=== PATIENT | male | born 2000 | race Caucasian/White ===

== ENCOUNTER 2023-02-04 18:00 | Emergency (ER) | payer OTHER, SELFPAY ==
[2023-02-04] VITALS (17 sets, daily range): BP systolic 103–123; BP diastolic 38–79; PULSE 48–62; RESP 16–20; TEMP 36.8; O2SAT 96–100
--- NOTE | 2023-02-04 18:07 | ECG_ITS ---
The [facility] Test Date: 2023-02-04 Pat Name: GUTIERREZ ESTES Department: Room: - Gender: Male [employer]ess: : 2000 Requested By: DIMITRI CARUSO Order Number: [id number] Reading MD: EDILIA JIMENEZ Measurements Intervals [place] Rate: 58 P: 65 MN: 124 QRS: 93 QRSD: 106 T: 39 QT: 430 QTc: 426 Interpretive Statements 1100 Sinus bradycardia 1570 with occasional ventricular premature complexes 7102 Moderate right axis deviation 9140 abnormal rhythm ECG No previous ECG available for comparison Electronically Signed On 02-05-2023 7:05:41 EDT by EDILIA JIMENEZ
--- NOTE | 2023-02-04 18:07 | XR_ITS ---
The [place] [id number] Patient Name: GUTIERREZ ESTES MRN: [id number] date: 2000 Sex: M Assigned Patient Location: ER Current Patient Location: ER Accession/Order Number: [id number] Exam Date: 02/04/2023 18:45 Report Date: 02/04/2023 20:02 At the request of: EMY DIAZ Procedure: XR abdomen 1V EXAM: XR abdomen 1V HISTORY: poss constipation COMPARISON: None. TECHNIQUE: Single supine view of the abdomen FINDINGS: Nonspecific bowel gas pattern is seen. No air-filled distended loops of bowel is seen to suggest bowel obstruction. Large volume of stool is seen in the colon. No obvious pathologic calcification is seen. The visualized osseous structures appear unremarkable. XR/XR abdomen 1V IMPRESSION: Large volume of stool seen in the colon. Electronically authenticated by: QUANG MARQUES Date: 02/04/2023 20:02
--- NOTE | 2023-02-04 18:09 | ED.GENADUL1 ---
HPI - General Adult General Chief complaint: Anxiety Stated complaint: ANXIETY/SITUATIONAL CRISIS Time Seen by Provider: 02/04/23 18:06 Source: patient Mode of arrival: ambulance Limitations: no limitations History of Present Illness HPI narrative: 22-year-old male presents to the emergency department because he's had thoughts of harming himself. He states he hasn't done anything to harm himself today but he started about it. He has a history of depression and PTSD. he takes antidepressants. He's also had abdominal pain on the left side for about a week and he states he hasn't been having good bowel movements. No fever or injury. He was transported here by paramedics. He is a poor historian, reluctant. Related Data Allergies Allergy/AdvReac Type Severity Reaction Status Date / Time No Known Drug Allergies Allergy Verified 02/04/23 18:09 Review of Systems ROS Narrative A ten point review of systems is negative except as noted above. PFSH PFSH Social History Smoking status: Former smoker Exam Narrative Exam Narrative: Nurses note and vital signs reviewed and patient is not hypoxic. General: The patient appears in no apparent distress. Patient is resting comfortably on cart. he is soft-spoken and answers questions very slowly. Skin: Warm, dry, no pallor noted. There is no rash noted. Head: Normocephalic, atraumatic Eye: Normal conjunctiva, no drainage Ears, Nose, Mouth, and Throat: oral mucosa is moist. Nares patent. Cardiovascular: Regular Rate and Rhythm Respiratory: Patient is in no distress, no accessory muscle use, lungs are clear to auscultation, no wheezing, rales or rhonchi Back: non-tender GI: Normal bowel sounds, no tenderness to palpation, no masses appreciated. No rebound, guarding, or rigidity noted. Musculoskeletal: The patient has no evidence of calf tenderness, no pitting edema, symmetrical pulses noted bilaterally Neurological: A&O x4, normal speech Psychiatric: Cooperative, flat affect Constitutional Vital Signs, click to edit/add: Last Vital Signs Temp 98.3 F 02/04/23 18:02 Pulse 61 02/04/23 18:02 Resp 18 02/04/23 18:02 BP 123/79 02/04/23 18:02 Pulse Ox 98 02/04/23 18:02 O2 Del Method Room Air 02/04/23 18:02 Course Vital Signs Vital signs: Vital Signs Temperature 98.3 F 02/04/23 18:02 Pulse Rate 61 02/04/23 18:02 Respiratory Rate 18 02/04/23 18:02 Blood Pressure 123/79 02/04/23 18:02 Pulse Oximetry 98 02/04/23 18:02 Oxygen Delivery Method Room Air 02/04/23 18:02 Temperature 98.3 F 02/04/23 18:02 Pulse Rate 61 02/04/23 18:02 Respiratory Rate 18 02/04/23 18:02 Blood Pressure 123/79 02/04/23 18:02 Pulse Oximetry 98 02/04/23 18:02 Oxygen Delivery Method Room Air 02/04/23 18:02 Medical Decision Making MDM Narrative Medical decision making narrative: tests are ordered and the patient is signed out to Dr. Cheng Differential Diagnosis Differential Diagnosis: depression, suicidal ideation, substance abuse, nonspecific abdominal pain, ECG Data Attestation: I personally reviewed and interpreted this ECG as follows: (EKG on my interpretation shows normal sinus rhythm with a rate of 58 and no acute changes) Discharge Plan Discharge Chief Complaint: Anxiety Patient Disposition: Still a Patient
--- NOTE | 2023-02-04 18:31 | PC.NURSE ---
Pt very anxious, legs moving around on cart and pt has arms wrapped around himself. Pt hypervent and then will hold his breath. When asked what is wrong pt states he just wants his mind to be be quiet Pt then begins to sob, turns on his lt side into a half position. pt talking under his breath.
[2023-02-04 18:32] LABS: Basophils Percent Auto 0.1 % (0.2-2.0); Eosinophils Absolute Auto 0.1 10^3/uL (0.0-0.7); Eosinophils Percent Auto 0.6 % (0.9-7.0); Hematocrit 40.7 % (42.0-54.0); Hemoglobin 13.9 g/dL (14.0-18.0); Immature Granulocytes Abs Auto 0.06 10^3/uL (0.00-0.03); Immature Granulocytes Pct Auto 0.4 % (0.0-0.5); Lymphocytes Absolute Auto 1.4 10^3/uL (1.2-3.8); Lymphocytes Percent Auto 9.9 % (20.5-60.0); Mean Corpuscular HGB Conc 34.2 g/dL (29.9-35.2); Mean Corpuscular Hemoglobin 32.6 pg (25.9-34.0); Mean Corpuscular Volume 95.3 fL (80.0-94.0); Mean Platelet Volume 8.7 fL (9.5-13.5); Monocytes Absolute Auto 0.9 10^3/uL (0.3-0.8); Monocytes Percent Auto 6.4 % (1.7-12.0); Neutrophils Absolute Auto 11.9 10^3/uL (1.4-6.5); Neutrophils Percent Auto 82.6 % (43.0-75.0); Platelet Count 264 10^3/uL (150-450); Red Blood Count 4.27 10^6/uL (4.70-6.10); Red Cell Distribution Width 12.1 % (11.0-15.0); White Blood Count 14.5 10^3/uL (4.0-11.0)
[2023-02-04 18:34] LABS: Bilirubin Urine NEGATIVE (NEGATIVE); Blood Urine NEGATIVE (NEGATIVE); Clarity Urine CLEAR (CLEAR); Color Urine LT. YELLOW (YELLOW); Glucose Urine UA NEGATIVE (NEGATIVE); Ketones Urine TRACE mg/dL (NEGATIVE); Leukocyte Esterase Urine TRACE (NEGATIVE); Nitrite Urine NEGATIVE (NEGATIVE); Protein Urine NEGATIVE (NEG/TRACE); Urobilinogen Urine 0.2 EU/dL (0.2-1.0); pH Urine 6.5 (5.0-9.0)
[2023-02-04 18:37] LABS: Urine Microscopic Indicated YES
--- NOTE | 2023-02-04 18:40 | PC.NURSE ---
Pt's scrubs changed after pt became very diaphoretic. Pt given cool cloth to wash his face.
[2023-02-04 18:42] LABS: Amphetamine Screen Urine NEGATIVE (NEGATIVE); Barbiturates Screen Urine NEGATIVE (NEGATIVE); Benzodiazepines Screen Urine NEGATIVE (NEGATIVE); Cannabinoid Screen Urine NEGATIVE (NEGATIVE); Cocaine Screen Urine NEGATIVE (NEGATIVE); Methadone Screen Urine NEGATIVE (NEGATIVE); Methamphetamines Screen Urine NEGATIVE (NEGATIVE); Opiate Screen Urine NEGATIVE (NEGATIVE); Oxycodone Screen Urine NEGATIVE (NEGATIVE); Phencyclidine Screen Urine NEGATIVE (NEGATIVE); Tricyclic Antidepressant Urine NEGATIVE (NEGATIVE)
[2023-02-04 18:43] LABS: Buprenorphine Screen Urine NEGATIVE (NEGATIVE)
[2023-02-04 18:46] LABS: WBC Urine 0-2 #/HPF (NONE SEEN)
[2023-02-04 18:47] LABS: Bacteria Urine TRACE #/HPF (NONE SEEN); Cast Seen? NONE SEEN #/LPF (NONE SEEN); Crystals Seen? None Seen #/HPF (None Seen); Mucus Urine NONE SEEN (NONE SEEN); RBC Urine 0-2 #/HPF (0-2); Squamous Epithelial Cell Urine NONE SEEN #/LPF (NONE/RARE); Urine Culture Indicated NO
[2023-02-04 18:59] LABS: Alanine Aminotransferase 52 U/L (16-63); Albumin Globulin Ratio 1.9; Albumin Level 5.3 g/dL (3.4-5.0); Alkaline Phosphatase 55 U/L (46-116); Amylase 76 U/L (25-115); Anion Gap 12.2; Aspartate Amino Transferase 35 U/L (15-37); BUN Creatinine Ratio 15.7; Bilirubin Direct 0.2 mg/dL (0.0-0.2); Bilirubin Total 0.8 mg/dL (0.2-1.0); Calcium 9.3 mg/dL (8.5-10.1); Carbon Dioxide 26.4 mmol/L (21.0-32.0); Chloride 101 mmol/L (98-107); Estimated GFR (African America >60 (>=60); Estimated GFR (Non-African Ame >60 (>=60); Ethanol <3 mg/dL; Globulin 2.8 g/dL; Glucose 79 mg/dL (74-106); Potassium 3.6 mmol/L (3.5-5.1); Salicylate <2.8 mg/dL (<=19.9); Sodium 136 mmol/L (136-145); Total Protein 8.1 g/dL (6.4-8.2)
[2023-02-04 19:00] LABS: Acetaminophen <2.0 ug/mL (10.0-30.0)
--- NOTE | 2023-02-04 19:56 | CT_ITS ---
The [address] [place] [id number] Patient Name: GUTIERREZ ESTES MRN: [id number] date: 2000 Sex: M Assigned Patient Location: ER Current Patient Location: ER Accession/Order Number: [id number] Exam Date: 02/04/2023 20:08 Report Date: 02/04/2023 21:50 At the request of: MITUL MARKER Procedure: CT abdomen pelvis w con EXAM: CT abdomen pelvis w con HISTORY: Abdominal pain, black stool COMPARISON: None. TECHNIQUE: CT of the abdomen and pelvis with intravenous contrast. Dose reduction techniques were achieved by using automated exposure control and/or adjustment of mA and/or kV according to patient size and/or use of iterative reconstruction technique. FINDINGS: TUBES AND IMPLANTS: None. LOWER CHEST: Unremarkable ABDOMEN and PELVIS ABDOMINAL WALL AND SOFT TISSUES: Unremarkable. BONES: No suspicious lesions. Multilevel degenerative changes of the spine. ARTERIES: Unremarkable. VEINS: Unremarkable. LYMPH NODES: Unremarkable. PERITONEUM/ RETROPERITONEUM: Unremarkable. BOWEL: No obstruction. Mild mucosal hyperenhancement and fecalization of contents seen within the terminal ileum. APPENDIX: Unremarkable LIVER: Unremarkable. GALLBLADDER: Unremarkable. BILE DUCTS: Not dilated SPLEEN: Unremarkable. PANCREAS: Unremarkable. ADRENALS: Unremarkable. KIDNEYS/ URETERS: Unremarkable. REPRODUCTIVE ORGANS: Unremarkable URINARY BLADDER: Unremarkable. Delayed imaging shows contrast within the bladder. CT/CT abdomen pelvis w con IMPRESSION: Mild mucosal hyperenhancement and fecalization of contents seen within the terminal ileum which may represent terminal ileitis. Electronically authenticated by: BOYD MEDINA Date: 02/04/2023 21:50
--- NOTE | 2023-02-04 19:57 | ED.GENADUL1 ---
HPI - General Adult General Chief complaint: Anxiety Stated complaint: ANXIETY/SITUATIONAL CRISIS Time Seen by Provider: 02/04/23 18:06 Source: patient Mode of arrival: ambulance Limitations: no limitations History of Present Illness HPI narrative: 22-year-old patient was signed out to me at shift change pending reevaluation and psychiatric consultation. Seen and examined in room 6. He states that he has been having suicidal thoughts today. He states that I have a lot of thoughts in my head that I wished weren't there He does not relate any specific plan. He does state that 2 weeks ago he had a relationship that ended. He has been having a hard time dealing with the end of this relationship that lasted approximately one year. He also admitted to the nurse who is sitting with him that he has a history of moderate alcohol use. He admits to last drinking on Wednesday. He has been having some left lower quadrant abdominal pain and black tarry stool according to him. His abdominal exam is benign. I reviewed the x-ray of his abdomen which does not show any acute findings however he does have an elevated white count and we will proceed with a CT of the abdomen and pelvis with contrast to rule out any intra-abdominal pathology. At the time of this dictation he is otherwise medically cleared and speaking to [facility]. CT scan abdomen and pelvis was ordered due to the abdominal pain, the results are included in the body of this report and shows some fecalization of Contents in the terminal ileum Which can be consistent with terminal ileitis. He was medicated with a dose of Flagyl. He requests something to eat. He was given something to eat. Recommendation for hospitalization was made by [facility] and the patient signed voluntarily. He is accepted for transfer to [place] [address] Carver Related Data Allergies Allergy/AdvReac Type Severity Reaction Status Date / Time No Known Drug Allergies Allergy Verified 02/04/23 18:09 [facility] Social History Smoking status: Former smoker Exam Constitutional Vital Signs, click to edit/add: Last Vital Signs Temp 98.3 F 02/04/23 18:02 Pulse 55 L 02/04/23 22:00 Resp 16 02/04/23 22:00 BP 106/44 L 02/04/23 22:00 Pulse Ox 98 02/04/23 22:00 O2 Del Method Room Air 02/04/23 22:00 Course Vital Signs Vital signs: Vital Signs Temperature 98.3 F 02/04/23 18:02 Pulse Rate 61 02/04/23 18:02 Respiratory Rate 18 02/04/23 18:02 Blood Pressure 123/79 02/04/23 18:02 Pulse Oximetry 98 02/04/23 18:02 Oxygen Delivery Method Room Air 02/04/23 18:02 Temperature 98.3 F 02/04/23 18:02 Pulse Rate 55 L 02/04/23 22:00 Respiratory Rate 16 02/04/23 22:00 Blood Pressure 106/44 L 02/04/23 22:00 Pulse Oximetry 98 02/04/23 22:00 Oxygen Delivery Method Room Air 02/04/23 22:00 Medical Decision Making MDM Narrative Medical decision making narrative: [place] [address] CT Scan Report Signed Patient: GUTIERREZ ESTES MR#: [id number] : 2000 Acct:[id number] Age/Sex: 22 / M ADM Date: 02/04/23 Loc: ER Attending Dr: Ordering Physician: Kendra Cheng Date of Service: 02/04/23 Procedure(s): CT abdomen pelvis w con Accession Number(s): [id number] cc: Tessa Khalil M.D.~ ? [facility] ?? ? [address] [place] [address] ?? ? [place] [address] ? Patient Name: GUTIERREZ ESTES ? MRN: [id number]? ? date: 2000? ? Sex: M Assigned Patient Location: ER Current Patient Location: ER Accession/Order Number: [id number] Exam Date: 02/04/2023? 20:08? ? Report Date: 02/04/2023? 21:50 ? At the request of: KENDRA? ESTEFANIA? ? Procedure:? CT abdomen pelvis w con ? EXAM: CT abdomen pelvis w con ? HISTORY: Abdominal pain, black stool ? COMPARISON: None. ? TECHNIQUE: CT of the abdomen and pelvis with intravenous contrast. Dose reduction techniques were achieved by using automated exposure control and/or adjustment of mA and/or kV according to patient size and/or use of iterative reconstruction technique. ? FINDINGS: TUBES AND IMPLANTS: None. ? LOWER CHEST: ? Unremarkable ? ABDOMEN and PELVIS ? ABDOMINAL WALL AND SOFT TISSUES: Unremarkable. ? BONES: No suspicious lesions. Multilevel degenerative changes of the spine. ? ARTERIES: Unremarkable. VEINS: Unremarkable. LYMPH NODES: Unremarkable. PERITONEUM/ RETROPERITONEUM: Unremarkable. BOWEL: No obstruction. Mild mucosal hyperenhancement and fecalization of contents seen within the terminal ileum. APPENDIX: Unremarkable ? LIVER: Unremarkable. GALLBLADDER: Unremarkable. BILE DUCTS: Not dilated SPLEEN: Unremarkable. PANCREAS: Unremarkable. ADRENALS: Unremarkable. KIDNEYS/ URETERS: Unremarkable. REPRODUCTIVE ORGANS: Unremarkable URINARY BLADDER: Unremarkable. Delayed imaging shows contrast within the bladder. ? CT/CT abdomen pelvis w con IMPRESSION: Mild mucosal hyperenhancement and fecalization of contents seen within the terminal ileum which may represent terminal ileitis. Lab Data Lab results narrative: [place] [address] CT Scan Report Signed Patient: GUTIERREZ ESTES MR#: [id number] : 2000 Acct:[id number] Age/Sex: 22 / M ADM Date: 02/04/23 Loc: ER Attending Dr: Ordering Physician: Kendra Cheng Date of Service: 02/04/23 Procedure(s): CT abdomen pelvis w con Accession Number(s): [id number] cc: Tessa Khalil M.D.~ ? [facility] ?? ? [address] [place] [address] ?? ? [place] [address] ? Patient Name: GUTIERREZ ESTES ? MRN: [id number]? ? date: 2000? ? Sex: M Assigned Patient Location: ER Current Patient Location: ER Accession/Order Number: [id number] Exam Date: 02/04/2023? 20:08? ? Report Date: 02/04/2023? 21:50 ? At the request of: KENDRA? MARKER? ? Procedure:? CT abdomen pelvis w con ? EXAM: CT abdomen pelvis w con ? HISTORY: Abdominal pain, black stool ? COMPARISON: None. ? TECHNIQUE: CT of the abdomen and pelvis with intravenous contrast. Dose reduction techniques were achieved by using automated exposure control and/or adjustment of mA and/or kV according to patient size and/or use of iterative reconstruction technique. ? FINDINGS: TUBES AND IMPLANTS: None. ? LOWER CHEST: ? Unremarkable ? ABDOMEN and PELVIS ? ABDOMINAL WALL AND SOFT TISSUES: Unremarkable. ? BONES: No suspicious lesions. Multilevel degenerative changes of the spine. ? ARTERIES: Unremarkable. VEINS: Unremarkable. LYMPH NODES: Unremarkable. PERITONEUM/ RETROPERITONEUM: Unremarkable. BOWEL: No obstruction. Mild mucosal hyperenhancement and fecalization of contents seen within the terminal ileum. APPENDIX: Unremarkable ? LIVER: Unremarkable. GALLBLADDER: Unremarkable. BILE DUCTS: Not dilated SPLEEN: Unremarkable. PANCREAS: Unremarkable. ADRENALS: Unremarkable. KIDNEYS/ URETERS: Unremarkable. REPRODUCTIVE ORGANS: Unremarkable URINARY BLADDER: Unremarkable. Delayed imaging shows contrast within the bladder. ? CT/CT abdomen pelvis w con IMPRESSION: Mild mucosal hyperenhancement and fecalization of contents seen within the terminal ileum which may represent terminal ileitis. ? ? Electronically authenticated by: WILLAM MEDINA ? Date: 02/04/2023? 21:50 Labs: Lab Results 02/04/23 Range/Units 18:19 WBC 14.5 H (4.0-11.0) 10^3/uL RBC 4.27 L (4.70-6.10) 10^6/uL Hgb 13.9 L (14.0-18.0) g/dL Hct 40.7 L (42.0-54.0) % MCV 95.3 H (80.0-94.0) fL MCH 32.6 (25.9-34.0) pg MCHC 34.2 (29.9-35.2) g/dL RDW 12.1 (11.0-15.0) % Plt Count 264 (150-450) 10^3/uL MPV 8.7 L (9.5-13.5) fL Neut % (Auto) 82.6 H (43.0-75.0) % Lymph % (Auto) 9.9 L (20.5-60.0) % [place] % (Auto) 6.4 (1.7-12.0) % Eos % (Auto) 0.6 L (0.9-7.0) % Baso % (Auto) 0.1 L (0.2-2.0) % Neut # (Auto) 11.9 H (1.4-6.5) 10^3/uL Lymph # (Auto) 1.4 (1.2-3.8) 10^3/uL [place] # (Auto) 0.9 H (0.3-0.8) 10^3/uL Eos # (Auto) 0.1 (0.0-0.7) 10^3/uL Baso # (Auto) 0.0 (0.0-0.1) 10^3/uL Abs Immat Gran (auto) 0.06 H (0.00-0.03) 10^3/uL Imm/Tot Granulo (auto) 0.4 (0.0-0.5) % Sodium 136 (136-145) mmol/L Potassium 3.6 (3.5-5.1) mmol/L Chloride 101 (98-107) mmol/L Carbon Dioxide 26.4 (21.0-32.0) mmol/L Anion Gap 12.2 BUN 16.0 (7.0-18.0) mg/dL Creatinine 1.02 (0.70-1.30) mg/dL Est GFR ( Amer) >60 (>=60) Est GFR (Non-Af Amer) >60 (>=60) BUN/Creatinine Ratio 15.7 Glucose 79 (74-106) mg/dL Calcium 9.3 (8.5-10.1) mg/dL Total Bilirubin 0.8 (0.2-1.0) mg/dL Direct Bilirubin 0.2 (0.0-0.2) mg/dL AST 35 (15-37) U/L ALT 52 (16-63) U/L Alkaline Phosphatase 55 (46-116) U/L Total Protein 8.1 (6.4-8.2) g/dL Albumin 5.3 H (3.4-5.0) g/dL Globulin 2.8 g/dL Albumin/Globulin Ratio 1.9 Amylase 76 (25-115) U/L Lipase 47.0 L (73.0-393.0) U/L TSH 3.380 (0.358-3.740) uIU/mL Urine Color Lt. yellow (YELLOW) Urine Clarity Clear (CLEAR) Urine pH 6.5 (5.0-9.0) Ur Specific [place] 1.010 (1.005-1.025) Urine Protein Negative (NEG/TRACE) mg/dL Urine Glucose (UA) Negative (NEGATIVE) mg/dL Urine Ketones Trace A (NEGATIVE) mg/dL Urine Occult Blood Negative (NEGATIVE) Urine Nitrite Negative (NEGATIVE) Urine Bilirubin Negative (NEGATIVE) Urine Urobilinogen 0.2 (0.2-1.0) EU/dL Ur Leukocyte Esterase Trace A (NEGATIVE) Urine RBC 0-2 (0-2) #/HPF Urine WBC 0-2 A (NONE SEEN) #/HPF Ur Squamous Epith Cells None seen (NONE/RARE) #/LPF Urine Crystals None seen (None Seen) #/HPF Urine Bacteria Trace A (NONE SEEN) #/HPF Urine Casts None seen (NONE SEEN) #/LPF Urine Mucus None seen (NONE SEEN) Ur Culture Indicated? No Salicylates <2.8 (<=19.9) mg/dL Urine Opiates Screen Negative (NEGATIVE) Ur Buprenorphine Scrn Negative (NEGATIVE) Ur Oxycodone Screen Negative (NEGATIVE) Urine Methadone Screen Negative (NEGATIVE) Ur Propoxyphene Screen Negative (NEGATIVE) Acetaminophen <2.0 L (10.0-30.0) ug/mL Ur Barbiturates Screen Negative (NEGATIVE) U Tricyclic Antidepress Negative (NEGATIVE) Ur Phencyclidine Scrn Negative (NEGATIVE) Ur Amphetamines Screen Negative (NEGATIVE) U Methamphetamines Scrn Negative (NEGATIVE) U Benzodiazepines Scrn Negative (NEGATIVE) Urine Cocaine Screen Negative (NEGATIVE) U Cannabinoids Screen Negative (NEGATIVE) Ethanol Quant <3 mg/dL Discharge Plan Discharge Chief Complaint: Anxiety Clinical Impression: Acute post-traumatic stress disorder, Terminal ileitis, Depression, Acute anxiety Patient Disposition: [facility] Time of Disposition Decision: 22:50 Discharge Location: [facility] Condition: Good
[2023-02-04] MEDS: 0.9 % SODIUM CHLORIDE 1,000 ML 1000 ML IV (20:24)
[2023-02-04] MEDS: PANTOPRAZOLE SODIUM 40 MG VIAL IV (20:25)
[2023-02-04] MEDS: METRONIDAZOLE 250 MG TABLET 500 MG PO (22:44)
--- NOTE | 2023-02-04 23:13 | PC.NURSE ---
Report to [address] [phone]
[2023-02-05] VITALS (9 sets, daily range): BP systolic 103; BP diastolic 38; PULSE 53–56; RESP 14–16; O2SAT 97–99
--- NOTE | 2023-02-05 01:01 | PC.NURSE ---
Transport here to take patient to [address] [place] [address].
== END 2023-02-05 01:10 ==
PROVIDERS: Emergency Medicine; Emergency Provider Emergency Medicine; PCP Family Medicine
DX: F43.11 Post-traumatic stress disorder, acute (principal); K50.00 Crohn's disease of small intestine without complications; F32.A Depression, unspecified; F41.9 Anxiety disorder, unspecified; Z87.891 Personal history of nicotine dependence; R45.851 Suicidal ideations
CPT/HCPCS: 36415; 74018; 74177; 80048; 80076; 80179; 80307; 80320; 80329; 81001; 81003; 82150; 83690; 84443; 85025; 93005; 96374; 99285; Q9967

== ENCOUNTER 2024-01-04 18:23 | Emergency (ER) | payer OTHER, SELFPAY ==
[2024-01-04] VITALS (10 sets, daily range): BP systolic 120–125; BP diastolic 69–80; PULSE 40–79; TEMP 37.2; O2SAT 99; BMI 23.5
--- NOTE | 2024-01-04 18:39 | ED.GENADUL1 ---
HPI HPI - General Adult General Chief complaint: Headache Stated complaint: Headache Time Seen by Provider: 01/04/24 18:32 Source: patient Mode of arrival: walk-in History of Present Illness HPI narrative: Patient is a 23-year-old male who presents to the emergency department for the evaluation of multiple complaints. He states for the last 2 days he has had global headache associated with pressure in his ears, dizziness where he feels lightheaded and as though the room is spinning. He has had no objective fevers. He reports decreased oral intake and nausea but no vomiting or diarrhea. He denies urinary symptoms. He states he came to the emergency department today for chest pain, although he did not discuss this with nursing staff at time of arrival to the ER or triage. He states the chest pain has been present for several hours in the mid and right chest. He denies coughing, hemoptysis, peripheral edema. He states he has also been feeling tired and fatigued and is worried he is dehydrated. Patient is on multiple psychiatric medications. He took ibuprofen earlier today for the headache with improvement but has not taken any additional medicines. Related Data Previous Rx's ?Medication ?Instructions ?Recorded ketorolac 10 mg tablet 10 mg PO TID PRN pain #10 tabs 01/04/24 ondansetron 4 mg disintegrating 4 mg PO Q6H PRN nausea and 01/04/24 tablet vomiting #12 tabs Allergies Allergy/AdvReac Type Severity Reaction Status Date / Time No Known Drug Allergies Allergy Verified 03/22/23 08:28 Opioid HPI Opioid Management Most Recent Opioid Data: Ur Phencyclidine Scrn Negative (NEGATIVE) 02/04/23 18:19 Review of Systems ROS Constitutional Reports: fatigue and malaise; Denies: fever or chills Ears, nose, mouth, and throat Reports: ear pain; Denies: throat pain or nasal congestion Cardiovascular Reports: chest pain Respiratory Denies: shortness of breath or cough Gastrointestinal Reports: nausea; Denies: abdominal pain, vomiting or diarrhea Musculoskeletal Denies: back pain or neck pain Integumentary/Breast Denies: rash Neurological Reports: headache and dizziness; Denies: numbness in extremities or weakness in extremities Hematologic/Lymphatic Denies: easy bruising or easy bleeding PFSH PFSH Social History Smoking status: Former smoker Exam Narrative Exam Narrative: Gen.: Awake, alert, in no distress Head: Normocephalic, atraumatic ENT: Moist mucous membranes, Right TM is minimally erythematous and bulging. Left TM is clear and bulging; No nuchal rigidity or meningismus Respiratory: No respiratory distress, lungs clear bilaterally Cardio: Regular rate and rhythm Extremities: Moves extremities equally Psych: Normal mood and affect Neuro: No focal neuro deficit Skin: Warm, dry, intact Constitutional Vital Signs, click to edit/add: Last Vital Signs Temp 99 F 01/04/24 18:27 Pulse 61 01/04/24 20:10 Resp 12 01/04/24 20:10 BP 120/80 01/04/24 18:27 Pulse Ox 99 01/04/24 18:27 O2 Del Method Room Air 01/04/24 18:27 Course Vital Signs Vital signs: Vital Signs Temperature 99 F 01/04/24 18:27 Pulse Rate 72 01/04/24 18:27 Respiratory Rate 18 01/04/24 18:27 Blood Pressure 120/80 01/04/24 18:27 Pulse Oximetry 99 01/04/24 18:27 Oxygen Delivery Method Room Air 01/04/24 18:27 Temperature 99 F 01/04/24 18:27 Pulse Rate 61 01/04/24 20:10 Respiratory Rate 12 01/04/24 20:10 Blood Pressure 120/80 01/04/24 18:27 Pulse Oximetry 99 01/04/24 18:27 Oxygen Delivery Method Room Air 01/04/24 18:27 Medical Decision Making [facility] Narrative Medical decision making narrative: Patient medicated with IV fluids, Toradol, Reglan, Benadryl. He is resting comfortably with improvement on reevaluation. EKG is unremarkable, lab studies are within normal limits and COVID test is negative. CT of the brain and chest x-ray show no evidence of acute Abnormalities. Vital signs are within normal limits. Patient with no respiratory distress in the ER. Toradol and Zofran given for home. Follow-up PCP and return to the emergency department if symptoms change or worsen. SUPERVISED APC VISIT, PHYSICIAN ATTESTATION: Based on the medical record the care appears appropriate. ? Medical Records Medical records reviewed: Yes I reviewed the patient's medical records Lab Data Lab results reviewed: Yes I reviewed the patient's lab results Labs: Lab Results 01/04/24 01/04/24 Range/Units 18:55 19:00 WBC 8.3 (4.0-11.0) 10^3/uL RBC 5.00 (4.70-6.10) 10^6/uL Hgb 15.9 (14.0-18.0) g/dL Hct 47.9 (42.0-54.0) % MCV 95.8 H (80.0-94.0) fL MCH 31.8 (25.9-34.0) pg MCHC 33.2 (29.9-35.2) g/dL RDW 12.1 (11.0-15.0) % Plt Count 273 (150-450) 10^3/uL MPV 9.0 L (9.5-13.5) fL Neut % (Auto) 62.1 (43.0-75.0) % Lymph % (Auto) 25.8 (20.5-60.0) % [place] % (Auto) 8.7 (1.7-12.0) % Eos % (Auto) 2.8 (0.9-7.0) % Baso % (Auto) 0.4 (0.2-2.0) % Neut # (Auto) 5.2 (1.4-6.5) 10^3/uL Lymph # (Auto) 2.1 (1.2-3.8) 10^3/uL [place] # (Auto) 0.7 (0.3-0.8) 10^3/uL Eos # (Auto) 0.2 (0.0-0.7) 10^3/uL Baso # (Auto) 0.0 (0.0-0.1) 10^3/uL Abs Immat Gran (auto) 0.02 (0.00-0.03) 10^3/uL Imm/Tot Granulo (auto) 0.2 (0.0-0.5) % PT 10.6 (9.0-11.6) sec INR 1.00 Sodium 138 (136-145) mmol/L Potassium 3.7 (3.5-5.1) mmol/L Chloride 99 (98-107) mmol/L Carbon Dioxide 30.0 (21.0-32.0) mmol/L Anion Gap 12.7 BUN 21.0 H (7.0-18.0) mg/dL Creatinine 0.98 (0.70-1.30) mg/dL Est GFR ( Amer) >60 (>=60) Est GFR (Non-Af Amer) >60 (>=60) BUN/Creatinine Ratio 21.4 Glucose 86 (74-106) mg/dL Lactate 1.4 (0.4-2.0) mmol/L Calcium 9.5 (8.5-10.1) mg/dL Total Bilirubin 0.6 (0.2-1.0) mg/dL AST 36 (15-37) U/L ALT 74 H (16-63) U/L Alkaline Phosphatase 68 (46-116) U/L Troponin I High Sens 4.3 (4.0-76.1) pg/mL Total Protein 8.1 (6.4-8.2) g/dL Albumin 4.4 (3.4-5.0) g/dL Globulin 3.7 g/dL Albumin/Globulin Ratio 1.2 SARS-CoV-2 Ag (CV2AG) Negative (NEGATIVE) Imaging Data CT scan - head: Attestation: I have reviewed the pertinent imaging results. Radiologist's impression: ITS Impressions Chest X-Ray 01/04/24 18:46 IMPRESSION: No acute findings. Electronically authenticated by: FELIX PILLAI Date: 01/04/2024 20:[address] 01/04/24 18:47 IMPRESSION: No intracranial hemorrhage or mass effect. Electronically authenticated by: QUANG MARQUES Date: 01/04/2024 21:02 ECG Data Attestation: I personally reviewed and interpreted this ECG as follows: (Normal sinus rhythm at a rate of 71,No acute ST elevation, occasional PVC . EKG reviewed by attending physician) Discharge Plan Discharge Stand Alone Forms: Portal Instructions Chief Complaint: Headache Clinical Impression: Headache, Dizziness Patient Disposition: Home, Self-Care Time of Disposition Decision: 21:14 Condition: Good Prescriptions / Home Meds: New ketorolac 10 mg tablet 10 mg PO TID PRN (Reason: pain) Qty: 10 0RF ondansetron 4 mg tablet,disintegrating 4 mg PO Q6H PRN (Reason: nausea and vomiting) Qty: 12 0RF Print Language: Urdu Instructions: Acute Headache (ED), Dizziness (ED) Referrals: Physician,Non-Staff, MD [Primary Care Provider] - 1 week
--- NOTE | 2024-01-04 18:46 | ECG_ITS ---
The [facility] Test Date: 2024-01-04 Pat Name: GUTIERREZ ESETS Department: Room: - Gender: Male Parts Analyst: : 2000 Requested By: [id number] Order Number: [id number] Reading MD: EDILIA JIMENEZ Measurements Intervals [place] Rate: 71 P: 65 NE: 134 QRS: 89 QRSD: 98 T: 58 QT: 376 QTc: 399 Interpretive Statements 1100 Sinus rhythm 1970 with occasional ectopic premature complexes 9140 abnormal rhythm ECG No previous ECG available for comparison Electronically Signed On 01-05-2024 7:00:11 EDT by EDILIA JIMENEZ
--- NOTE | 2024-01-04 18:46 | XR_ITS ---
The [address] [address] Patient Name: GUTIERREZ ESTES MRN: [id number] date: 2000 Sex: M Assigned Patient Location: ER Current Patient Location: ER Accession/Order Number: [id number] Exam Date: 01/04/2024 19:34 Report Date: 01/04/2024 20:38 At the request of: MAKEDA RASMUSSEN Procedure: XR chest 1V EXAM: XR chest 1V COMPARISON: None available. CLINICAL INDICATION: Chest pain. FINDINGS: The cardiomediastinal silhouette is within normal limits. No focal consolidation. No pleural effusion. No pneumothorax. No evidence of acute osseous abnormality. XR/XR chest 1V IMPRESSION: No acute findings. Electronically authenticated by: FELIX PILLAI Date: 01/04/2024 20:38
--- NOTE | 2024-01-04 18:47 | CT_ITS ---
The [address] [address] Patient Name: GUTIERREZ ESTES MRN: [id number] date: 2000 Sex: M Assigned Patient Location: ED.MAIN Current Patient Location: ER Accession/Order Number: [id number] Exam Date: 01/04/2024 19:38 Report Date: 01/04/2024 21:02 At the request of: MAKEDA RASMUSSEN Procedure: CT head/brain wo con EXAMINATION: CT head/brain wo con, , 01/04/2024 7:38 PM EDT INDICATION: Headache, dizziness HISTORY: Ordering Provider Reason for Exam: Headache, dizziness Technologist Note: Additional: COMPARISON: None. TECHNIQUE: CT scan of the head was performed without IV contrast. CT dose reduction technique was used, including Automated Exposure Control. FINDINGS: Ventricles and sulci are normal in size and configuration. No extra-axial collection. No intracranial hemorrhage. No mass effect or edema. No CT evidence of large territorial infarction. Visualized paranasal sinuses are well aerated. Mastoids are clear. Calvarium is unremarkable. CT/CT head/brain wo con IMPRESSION: No intracranial hemorrhage or mass effect. Electronically authenticated by: QUANG MARQUES Date: 01/04/2024 21:02
[2024-01-04] MEDS: 0.9 % SODIUM CHLORIDE 1,000 ML 999 ML IV (19:11)
[2024-01-04] MEDS: DIPHENHYDRAMINE HCL 50 MG/ML VIAL 25 MG IV (19:12)
[2024-01-04] MEDS: KETOROLAC TROMETHAMINE 30 MG/ML VIAL IVP (19:15)
[2024-01-04] MEDS: METOCLOPRAMIDE HCL 10 MG/2 ML VIAL IVP (19:17)
--- NOTE | 2024-01-04 19:23 | PC.NURSE ---
pt states improvement of symptoms with cool compress to forehead and lights to room dimmed. pt no longer diaphoretic. clammy at this time. denies nausea and states feeling a little bit better . denies current needs at this time. bedside report given to Alicia FLOYD, all questions answered.
[2024-01-04 19:32] LABS: Basophils Percent Auto 0.4 % (0.2-2.0); Eosinophils Absolute Auto 0.2 10^3/uL (0.0-0.7); Eosinophils Percent Auto 2.8 % (0.9-7.0); Hematocrit 47.9 % (42.0-54.0); Hemoglobin 15.9 g/dL (14.0-18.0); Immature Granulocytes Abs Auto 0.02 10^3/uL (0.00-0.03); Immature Granulocytes Pct Auto 0.2 % (0.0-0.5); Lymphocytes Absolute Auto 2.1 10^3/uL (1.2-3.8); Lymphocytes Percent Auto 25.8 % (20.5-60.0); Mean Corpuscular HGB Conc 33.2 g/dL (29.9-35.2); Mean Corpuscular Hemoglobin 31.8 pg (25.9-34.0); Mean Corpuscular Volume 95.8 fL (80.0-94.0); Monocytes Absolute Auto 0.7 10^3/uL (0.3-0.8); Monocytes Percent Auto 8.7 % (1.7-12.0); Neutrophils Absolute Auto 5.2 10^3/uL (1.4-6.5); Neutrophils Percent Auto 62.1 % (43.0-75.0); Platelet Count 273 10^3/uL (150-450); Red Cell Distribution Width 12.1 % (11.0-15.0); White Blood Count 8.3 10^3/uL (4.0-11.0)
[2024-01-04 19:43] LABS: Internal Control Within Normal Limits; SARS-CoV-2 Ag NEGATIVE (NEGATIVE)
[2024-01-04 19:48] LABS: Prothrombin Time 10.6 sec (9.0-11.6)
[2024-01-04 19:49] LABS: Lactate/Lactic Acid 1.4 mmol/L (0.4-2.0)
[2024-01-04 19:56] LABS: Alanine Aminotransferase 74 U/L (16-63); Albumin Globulin Ratio 1.2; Albumin Level 4.4 g/dL (3.4-5.0); Alkaline Phosphatase 68 U/L (46-116); Anion Gap 12.7; Aspartate Amino Transferase 36 U/L (15-37); BUN Creatinine Ratio 21.4; Bilirubin Total 0.6 mg/dL (0.2-1.0); Calcium 9.5 mg/dL (8.5-10.1); Chloride 99 mmol/L (98-107); Estimated GFR (African America >60 (>=60); Estimated GFR (Non-African Ame >60 (>=60); Globulin 3.7 g/dL; Glucose 86 mg/dL (74-106); Potassium 3.7 mmol/L (3.5-5.1); Sodium 138 mmol/L (136-145); Total Protein 8.1 g/dL (6.4-8.2); Troponin I High Sensitivity 4.3 pg/mL (4.0-76.1)
== END 2024-01-04 21:30 | disposition home or self-care (01) ==
PROVIDERS: Physician Assistant; Emergency Provider Emergency Medicine
DX: R51.9 Headache, unspecified (principal); R42 Dizziness and giddiness; Z87.891 Personal history of nicotine dependence; Z20.822 Contact with and (suspected) exposure to COVID-19
CPT/HCPCS: 36415; 70450; 71045; 80053; 83605; 84484; 85025; 85610; 87811; 93005; 96361; 96374; 96375; 99285; J1200; J1885; J2765

== ENCOUNTER 2024-06-30 09:06 | Outpatient (OUT) | payer OTHER, SELFPAY ==
--- NOTE | 2024-06-30 09:15 | MR_ITS ---
The [address] [address] Patient Name: GUTIERREZ ESTES MRN: [id number] date: 2000 Sex: M Assigned Patient Location: MRI Current Patient Location: MRI Accession/Order Number: [id number] Exam Date: 06/30/2024 09:45 Report Date: 06/30/2024 14:34 At the request of: NON-STAFF PHYSICIAN Procedure: MR head/brain wo con MR head/brain wo con, 06/30/2024 9:45 AM EST INDICATION: Worsening Headaches COMPARISON: There is no appropriate prior study for comparison. TECHNIQUE: Multiplanar, multisequential MRI images of brain were obtained without injection of contrast. FINDINGS: The cerebral sulci as well as ventricular system are appropriate for age. There is no restricted diffusion. There is no intracranial mass, mass effect, midline shift, intra or extra-axial fluid collection or large hemorrhage. Normal flow-void in the intracranial vessels is noted. Retention cyst within the left maxillary sinus is noted. The visualized portions of orbits, mastoid air cells as well as remainder of paranasal sinuses are unremarkable. MR/MR head/brain wo con IMPRESSION: No acute intracranial process is noted. No intracranial abnormality is noted. Left maxillary retention cyst. Electronically authenticated by: PENG EVERETT Date: 06/30/2024 14:34
--- NOTE | 2024-06-30 09:22 | XR_ITS ---
The [address] [address] Patient Name: GUTIERREZ ESTES MRN: [id number] date: 2000 Sex: M Assigned Patient Location: MRI Current Patient Location: MRI Accession/Order Number: [id number] Exam Date: 06/30/2024 09:25 Report Date: 06/30/2024 09:39 At the request of: NON-STAFF PHYSICIAN Procedure: XR foreign body eye MILLICENT EXAMINATION: XR foreign body eye MILLICENT HISTORY: Foreign Body Eye COMPARISON: No relevant comparison available. FINDINGS: ORBITS: Negative for a metallic foreign body. OTHER: Negative. XR/XR foreign body eye MILLICENT IMPRESSION: 1. No metallic foreign body within the orbits. Electronically authenticated by: CHARLENE BIRMINGHAM Date: 06/30/2024 09:39
== END 2024-06-30 09:07 | disposition home or self-care (01) ==
LOC: MRI 09:06
DX: R51.9 Headache, unspecified (principal)
CPT/HCPCS: 70030; 70551

== ENCOUNTER 2025-02-27 17:56 | Emergency (ER) | payer OTHER, SELFPAY ==
[2025-02-27 18:00] VITALS: BP 129/85; PULSE 80; TEMP 36.7; O2SAT 98; BMI 24.2
--- OUTSIDE RECORDS SUMMARY | 2025-02-27 18:07 | XMS_ITS | CCD ---
Author Organization [facility] Care Team Providers Care Arcgis Developer Name Role Phone INOCENCIO CAO Consulting Unavailable TESSA CARUSO Primary Care Unavailable INOCENCIO CAO Admitting Unavailable INOCENCIO CAO Attending Unavailable Gianluca Cintron Consulting Unavailable TESSA CARUSO Attending Unavailable TESSA CARUSO Consulting Unavailable TESSA CARUSO Primary Care Unavailable TESSA CARUSO Admitting Unavailable Maryanne Zarco Consulting Unavailable Frederick COSTELLO Attending Unavailable Tessa Caruso Unavailable MD Tessa Caruso Primary Care Provider MD Jose Alfredo Celaya Admit Provider MD Jose Alfredo Celaya Attending Provider Jamie Lazar Unavailable Pete Galicia Unavailable DO Azam Montanez Primary Care Provider PINEDA Reddy Emergency Provider [phone] Azam Montanez Primary Care Unavailable Jamie Lazar Attending Unavailable Jamie Lazar Admitting Unavailable Azam Montanez Primary Care Unavailable Cooper Reddy Attending Unavailable Cooper Reddy Admitting Unavailable NABEEL QUINTEROS Attending Unavailable Unallocated , Noms Provider Primary Care Provi axvi Allergies Allergy Classification Reported Allergen(s) Allergy Type Date of Onset Reaction(s) Facility (2 sources) patient allergy list reviewed by nurse or physicia Propensity to adverse reactions 6 Comment:Done [employer] Other (2 sources) Allergies Reconciled Propensity to adverse reactions Unknown [employer] Other Medications Current Medications Medication Drug Class(es) Dates Sig (Normalized) Sig (Original) amitriptyline hydrochloride 25 mg oral tablet (2 sources) Tricyclic Antidepressant Start: 04-20-2023 take 1-2 tablets by mouth at bedtime as needed for sleep amitriptyline (Elavil) 25 MG tablet TAKE ONE TO TWO TABLETS BY MOUTH AT BEDTIME NEEDED FOR SLEEP 04/20/2023 Active cefdinir 300 mg oral capsule (4 sources) Cephalosporin Antibacterial Start: 11-29-2024 End: 12-09-2024 take 1 capsule by mouth in the morning cefdinir (Omnicef) 300 MG capsule Indications: Acute non-recurrent frontal sinusitis Take 1 capsule (300 mg) by mouth in the morning and 1 capsule (300 mg) before bedtime. Do all this for 10 days. 20 capsule 11/29/2024 12/09/2024 Active Start: 10-15-2023 End: 04-02-2024 Cefdinir Discontinued 600 MG PO October 15, 2023 12:00am April 02, 2024 1:19pm celecoxib 200 mg oral capsule (1 source) Nonsteroidal Anti-inflammatory Drug Start: 04-02-2024 take 200 mg by mouth once daily Celecoxib Active 200 MG PO Daily April 02, 2024 12:00am hydrOXYzine pamoate 25 mg oral capsule (9 sources) Antihistamine Start: 04-20-2023 hydrOXYzine pamoate (Vistaril) 25 MG capsule TAKE ONE OR TWO CAPSULES BY MOUTH TWICE A DAY NEEDED FOR ANXIETY OR SLEEP PROMOTION 04/20/2023 Active Start: 02-05-2023 End: 02-05-2023 take 25 mg by mouth twice daily Hydroxyzine Pamoate Ac tive 25 MG PO Twice daily February 05, 2023 12:00am 25-50 mg hydrOXYzine HCl Active ketorolac tromethamine 5 mg/ml ophthalmic solution (1 source) Nonsteroidal Anti-inflammatory Drug, Cyclooxygenase Inhibitor Start: 04-02-2024 take 1 drop(s) into the eye(s) every six hours Ketorolac (Acular) 0.5 % drops Active 2 DROPS EYE-RIGHT Q6H 5 April 02, 2024 12:00am methylPREDNISolone (2 sources) Corticosteroid Start: 10-12-2023 methylPREDNISolone (Medrol Dospak) 4 MG tablets Indications: Dysfunction of right eustachian tube , Non-recurrent acute serous otitis media of right ear As directed 21 tablet 10/12/2023 Active QUEtiapine 50 mg oral tablet (13 sources) Atypical Antipsychotic Start: 02-08-2023 take 50 mg by mouth once daily at bedtime Quetiapine Active 50 MG PO Daily at bedtime February 08, 2023 12:00am Start: 01-08-2023 End: 02-08-2023 take 25 mg by mouth at bedtime Quetiapine Discontinued 25 MG PO Bedtime February 05, 2023 12:00am February 08, 2023 12:05pm sertraline 100 mg oral tablet (3 sources) Serotonin Reuptake Inhibitor Start: 06-16-2024 take 2 tablets by mouth once daily sertraline (Zoloft) 100 MG tablet Take 200 mg by mouth Daily 06/16/2024 Active Start: 04-02-2024 Zoloft Active April 02, 2024 12:00am SUMAtriptan 50 mg oral tablet (2 sources) Serotonin-1b and Serotonin-1d Receptor Agonist Start: 11-13-2024 take 1 tablet by mouth once SUMAtriptan (Imitrex) 50 MG tablet Take 50 mg by mouth 1 (one) time if needed for migraine 11/13/2024 Active Completed/Discontinued Medications Medication Drug Class(es) Dates Sig (Normalized) Sig (Original) benztropine mesylate 0.5 mg oral tablet (3 sources) Anticholinergic, Antihistamine Start: 02-08-2023 End: 06-30-2023 take 0.5 mg by mouth every six hours Benztropine Discontinued 0.5 MG PO Q6H February 08, 2023 12:00am June 30, 2023 9:45am escitalopram 5 mg oral tablet (3 sources) Serotonin Reuptake Inhibitor Start: 02-08-2023 End: 10-15-2023 take 5 mg by mouth once daily in the morning Escitalopram Oxalate Discontinued 5 MG PO Every morning February 08, 2023 12:00am October 15, 2023 1:13pm FLUoxetine 20 mg oral capsule (3 sources) Serotonin Reuptake Inhibitor Start: 02-05-2023 End: 02-08-2023 take 20 mg by mouth at bedtime Fluoxetine Discontinued 20 MG PO Bedtime February 05, 2023 12:00am February 08, 2023 12:05pm meloxicam 15 mg oral tablet (5 sources) Nonsteroidal Anti-inflammatory Drug Start: 10-19-2022 take 1 tablet by mouth every twenty-four hours Meloxicam 15 MG 1 tablet Orally Once a day for 30 days Oct, Not-Taking/PRN mirtazapine 15 mg oral tablet (4 sources) Start: 02-05-2023 End: 02-08-2023 take 15 mg by mouth once daily at bedtime Mirtazapine Discontinued 15 MG PO Daily at bedtime February 05, 2023 12:00am February 08, 2023 12:05pm Mirtazapine Acti ve traZODone hydrochloride 50 mg oral tablet (3 sources) Serotonin Reuptake Inhibitor Start: 02-08-2023 End: 10-15-2023 take 50 mg by mouth once daily at bedtime Trazodone Discontinued 50 MG PO Daily at bedtime February 08, 2023 12:00am October 15, 2023 1:14pm Problems Active Problems Problem Classification Problem Date Documented Da te Episodic/Chronic Attention-deficit, conduct, and disruptive behavior disorders (2 sources) Attention deficit hyperactivity disorder; Translations: [Attention-deficit hyperactivity disorder, unspecified type] Onset: 09-07-2013 Chronic External cause codes: Natural/environment (1 source) Other and unspecified overexertion or strenuous movements or postures, initial encounter; Translations: [OTH AND UNS OVREXRT/STRN MVMT/POS INT] Onset: 08-20-2020 External cause codes: Unspecified (1 source) Activity, bowling; Translations: [ACTIVITY BOWLING] Onset: 08-20-2020 Gastrointestinal hemorrhage (6 sources) Hemorrhage of rectum and anus; Translations: [Hemorrhage of anus and rectum] Onset: 01-08-2016 Episodic Genitourinary symptoms and ill-defined conditions (6 sources) Unspecified abnormal findings in urine; Translations: [Abnormal findings on microbiological examination of urine] Onset: 08-19-2020 Episodic Hemorrhoids (2 sources) Hemorrhoids; Translations: [Unspecified hemorrhoids] Episodic Miscellaneous mental health disorders (4 sources) Primary insomnia; Translations: [Primary insomnia] Chronic Mood disorders (8 sources) Depressive disorder; Translations: [Depression] Onset: 04-20-2014 02-05-2023 Chronic Other eye disorders (1 source) Disorder of eye; Translations: [Other specified disorders of eye and adnexa] 04-02-2024 Episodic Other eye disorders (1 source) Other specified disorders of eye and adnexa; Translations: [Other specified disorders of eye and adnexa] Onset: 04-02-2024 Episodic Other injuries and conditions due to external causes (3 sources) Unspecified injury of left hip, initial encounter; Translations: [UNSPECIFIED INJURY LEFT HIP INITIAL] Onset: 08-18-2020 Episodic Other non-traumatic joint disorders (2 sources) Pain in right knee; Translations: [PAIN IN RIGHT KNEE] Onset: 08-21-2020 Episodic Other non-traumatic joint disorders (1 source) Pain in left knee; Translations: [PAIN IN LEFT KNEE] Onset: 08-21-2020 Episodic Other non-traumatic joint disorders (2 sources) Shoulder joint pain; Translations: [Pain in right shoulder] Episodic Other non-traumatic joint disorders (4 sources) Arthralgia of the lower leg; Translations: [Pain in right knee] Episodic Other upper respiratory disease (2 sources) Allergic rhinitis; Translations: [Allergic rhinitis, unspecified] Onset: 09-07-2013 Chronic Other upper respiratory infections (8 sources) Acute sinusitis; Translations: [Acute sinusitis, unspecified] Onset: 09-07-2013 11-29-2024 Episodic Residual codes; unclassified (1 source) Personal history of other specified conditions; Translations: [PERSONAL HISTORY OTH SPEC CONDITION] Onset: 08-20-2020 Episodic Spondylosis; intervertebral disc disorders; other back problems (3 sources) Low back pain; Translations: [Low back pain] Onset: 08-21-2020 Episodic Sprains and strains (1 source) Strain of muscle, fascia and tendon of left hip, initial encounter; Translations: [STRAIN MUSC FASC TENDON LT HIP INIT] Onset: 08-20-2020 Episodic Thyroid disorders (2 sources) Hypothyroidism; Translations: [Hypothyroidism, unspecified] Onset: 12-22-2013 Chronic Unclassified (1 source) Hemorrhage of anus and rectum; Translations: [Hemorrhage of anus and rectum] Onset: 06-30-2023 Past or Other Problems Problem Classification Problem Date Documented Da te Episodic/Chronic Abdominal pain (2 sources) Abdominal pain; Translations: [Unspecified abdominal pain] Onset: 11-22-2014 Episodic Open wounds of extremities (2 sources) Open wound of finger without complication; Translations: [Open wound of finger(s), without mention of complication] Onset: 03-06-2015 Episodic Other ear and sense organ disorders (2 sources) Acute otitis externa; Translations: [Acute swimmers' ear] Onset: 02-09-2017 Episodic Other non-traumatic joint disorders (2 sources) Arthralgia of the ankle and/or foot; Translations: [Pain in joint, ankle and foot] Onset: 02-09-2017 Episodic Other non-traumatic joint disorders (2 sources) Arthralgia of the pelvic region and thigh; Translations: [Pain in joint, pelvic region and thigh] Onset: 10-13-2016 Episodic Screening and history of mental health and substance abuse codes (2 sources) History of tobacco use; Translations: [Personal history of tobacco use, presenting hazards to health] Onset: 10-13-2016 Episodic Results Test Name Value Interpretation Reference Range Facility Laboratory - Microbiology an d Antimicrobial susceptibilityon 11-29-2024 SARS-CoV-2 (COVID-19) RNA OLIVIER+probe Ql (Unsp spec) Negative Negative [facility] No Panel Informationon 11-29 INFLUENZA A Negative Negative [facility] INFLUENZA B Negative Negative [facility] S. pyogenes DNA OLIVIER+probe No m (Unsp spec)on 11-29-2024 RESULT Negative Negative [facility] Drug Screen,Urineon 06-30-20 23 Amphetamine Screen,Urine Negative Normal Negative [facility] Comment on above: Performed By: #### U RDS #### [facility] [address] [place] [address] [place] Barbiturate Screen,Urine Negative Normal Negative [facility] Comment on above: Performed By: #### U RDS #### [facility] [address] [place] [id number] [place] Benzodiazepines Screen,Urine Negative Normal Negative [facility] Comment on above: Performed By: #### U RDS #### [facility] [address] [place] [address] [place] Cannabinoid Screen,Urine Negative Normal Negative [facility] Comment on above: Result Comment: Thes e are unconfirmed results and should not be used for legal purposes. Drug Cut-Off Concentration: AMPH 1000 ng/mL SUKHI 200 ng/mL TANK 200 ng/mL COCM 300 ng/mL OP 300 ng/mL PCP 25 ng/mL THC 20 ng/mL PERFORMED BY: [place] [address] PATHOLOGIST BARBECUE COOK ROBYN CAPONE M.D. Performed By: #### U RDS #### [facility] [address] [place] [address] Cocaine Screen,Urine Negative Normal Negative [facility] Comment on above: Performed By: #### U RDS #### [address] Opiate Screen,Urine Negative Normal Negative [facility] Comment on above: Performed By: #### U RDS #### [address] Phencyclidine Screen,Urine Negative Normal Negative [facility] Comment on above: Performed By: #### U RDS #### [address] Cholesterol [Mass/volume] in Serum or PlasmaOrdered By: Bret Celaya on 02-05-2023 Cholesterol [Mass/Vol] 122 mg/dL 140-200 [facility] Comment on above: Chol less than 200 m g/dl low riskChol 201-239 mg/dl borderline riskChol 240 mg/dl and greater high risk Cholesterol in LDL Calc [Mas s/Vol]Ordered By: Bret Celaya on 02-05-2023 Cholesterol in LDL [Mass/Vol] 74 mg/dL 0-100 [facility] Comment on above: LDL ATP III CLASSIFI CATIONLDL less than 100 mg/dL OptimalLDL 100-129 mg/dL Near or above optimalLDL 130-159 mg/dL Borderline highLDL 160-189 mg/dL HighLDL greater than 189 mg/dL Very high Cholesterol in VLDL Calc [Ma ss/Vol]Ordered By: Bret Celaya on 02-05-2023 Cholesterol in VLDL [Mass/Vol] 9 mg/dL [facility] Serum or plasma high density lipoprotein (HDL) cholesterol measurementOrdered By: Bret Celaya on 02-05-2023 Cholesterol in HDL [Mass/Vol] 39 mg/dL 23-92 [facility] Comment on above: HDL CHOL ATP-III CLA SSIFICATION Cardiovascular RiskHDL > or equal to 60 mg/dL LOWHDL < 40 mg/dL HIGH Serum or plasma total choles terol/high density lipoprotein (HDL) cholesterol mass ratOrdered By: Bret Celaya on 02-05-2023 Cholesterol.total/Chol esterol in HDL [Mass ratio] 3.1 {ratio} <5.0 [facility] Thyrotropin [Units/volume] i n Serum or PlasmaOrdered By: Bret Celaya on 02-05-2023 TSH Qn 2.78 m[IU]/L 0.45-5.33 [facility] Triglyceride [Mass/volume] i n Serum or PlasmaOrdered By: Bret Celaya on 02-05-2023 Triglyceride [Mass/Vol] 47 mg/dL 0-149 [facility] Comment on above: TRIG ATP III CLASSIF ICATIONTRIG less than 150 mg/dL NormalTRIG 150-199 mg/dL Borderline highTRIG 200-500 mg/dL High TRIG greater than 500 mg/dL Very highStandard traceable to the Center for Disease Conrtrol and Prevention (CDC) test method. Vitamin D+Metabolites [Mass/ volume] in Serum or PlasmaOrdered By: Bret Celaya on 02-05-2023 Vitamin D+Metabolites [Mass/Vol] 43.1 ng/mL 30-100 [facility] Comment on above: VITAMIN D STATUS 25( [place])VITAMIN D RANGE (ng/mL) Deficient <20 Insufficient 20 to <30Sufficient 30 to 100Reference: Denia MF,Dk NC, Tali ALEXANDER, et al. Evaluation,treatment, and prevention of vitamin D deficiency; an Endocrine Society clinical practice guideline. JCEM. 2010; 96(7):1911-30. Consenton 09-21-2022 Consent [id number]. [id number]:127 Normal [facility] Registrationon 09-21-2022 Registration [id number]. [id number]:127 Normal [facility] UA RANDOM W/MICROSCOPICon Bacteria LM.HPF (Urine sed) [#/Area] NONE SEEN Normal NONE SEEN [facility] Comment on above: Performed By: #### U AMIC #### [facility] [address] [place] [address] Bonnie Alanna Bilirubin [Mass/Vol] Negative Normal NEGATIVE [facility] Comment on above: Performed By: #### U AMIC #### [facility] [address] [place] [address] Bonnie Alanna BLOOD Negative Normal NEGATIVE [facility] Comment on above: Performed By: #### U AMIC #### [facility] [address] [place] [address] Bonnie Alanna CAST NONE SEEN Normal NONE SEEN [facility] Comment on above: Performed By: #### U AMIC #### [facility] [address] [place] [address] Bonnie Alanna Clarity (U) SL CLOUDY Abnormal CLEAR [facility] Comment on above: Performed By: #### U AMIC #### [facility] [address] [place] [address] Bonnie Alanna Color (U) YELLOW Normal YELLOW [facility] Comment on above: Performed By: #### U AMIC #### [facility] [address] [place] [address] Bonnie Alanna Crystals LM Nom (Urine sed) NONE SEEN Normal NONE SEEN [facility] Comment on above: Performed By: #### U AMIC #### [facility] [address] [place], [place] [id number] Bonnie Alanna Epithelial cells LM.HPF (Urine sed) [#/Area] RARE Normal NONE SEEN /RARE [facility] Comment on above: Performed By: #### U AMIC #### [facility] [address] [place] [address] Bonnie Alanna Glucose [Mass/Vol] Negative Normal NEGATIVE [facility] Comment on above: Performed By: #### U AMIC #### [facility] [address] [id number] Bonnie Alanna Ketones Ql (U) Negative Normal NEGATIVE [facility] Comment on above: Performed By: #### U AMIC #### [facility] [address] [id number] Bonnie Alanna MUCOUS NONE SEEN Normal NONE SEEN [facility] Comment on above: Performed By: #### U AMIC #### [facility] [address] [address] Bonnie Alanna Nitrite Ql (U) Negative Normal NEGATIVE [facility] Comment on above: Performed By: #### U AMIC #### [facility] [address] [place] [address] Bonnei Alanna pH (Bld) 6.5 Normal 5-9 [facility] Comment on above: Performed By: #### U AMIC #### [facility] [address] [address] Bonnie Alanna RBC (Bld) [#/Vol] NONE SEEN Abnormal 0-2 [facility] Comment on above: Performed By: #### U AMIC #### [facility] [address] [id number] Bonnie Alanna SPEC GRAVITY 1.015 Normal 1.005-<=1.025 [facility] [place] [facility] Comment on above: Performed By: #### U AMIC #### [facility] [address] [address] Bonnie Alanna UA PROTEIN Negative Normal NEGATIVE/ TRACE [facility] Comment on above: Performed By: #### U AMIC #### [facility] [address] [id number] Bonnie Alanna Urobilinogen Qn (U) 0.2 EU/dl Normal 0.2 - 1.[address] [facility] Comment on above: Performed By: #### U AMIC #### [facility] [address] [phone] Bonnie Alanna WBC (Bld) [#/Vol] NONE SEEN Normal NONE SEEN [facility] Comment on above: Performed By: #### U AMIC #### [facility] [address] [place], [place] [address] Bonnie Mondragon WBC (Bld) [#/Vol] Negative Normal NEGATIVE [facility] Comment on above: Performed By: #### U AMIC #### [facility] [address] [place], [place] [address] Bonnieza Mondragon XR KNEE MILLICENT 4V or >on 2020 INR Coag (Bld) [Relative time] EXAM: XR KNEE MILLICENT 4V or > HISTORY: Pain in right knee COMPARISON: None. TECHNIQUE: Bilateral knees 3 views FINDINGS: Possible mild joint space narrowing along the medial tibiofemoral compartment. No fracture or dislocation. No erosions. No joint effusions. IMPRESSION: No acute findings. Possible joint space narrowing along the medial tibiofemoral compartment bilaterally. Suggest follow-up weightbearing views. Electronically authenticated by: MARYANNE ZARCO Date: 2020-08-19 20:26 Normal [facility] XR LSPINE MIN 4 VIEWSon 08-05 TSH Qn EXAM: XR LSPINE MIN 4 VIEWS HISTORY: Pain of right shoulder joint chronic back pain COMPARISON: None. TECHNIQUE: Lumbar spine 5 views FINDINGS: Alignment is normal. Disc spaces are intact. Neuroforamina are patent bilaterally. No fracture or subluxation is seen. There is extensive fecal stasis throughout the colon.. IMPRESSION: Unremarkable lumbar spine evaluation. Extensive fecal stasis suggesting constipation.. Electronically authenticated by: MARYANNE ZARCO Date: 2020-08-19 20:27 Normal [facility] XR SHOULDER RT 2V or >on XR SHOULDER RT 2V or > EXAM: XR SHOULDER RT 2V or > HISTORY: Low back pain COMPARISON: None. TECHNIQUE: Right shoulder 3 views FINDINGS: Joint spaces are intact. There are no erosions. There is no fracture, dislocation or AC joint separation. Visualized right hemithorax is unremarkable. IMPRESSION: Unremarkable exam. Electronically authenticated by: MARYANNE ZARCO Date: 2020-08-19 20:24 Normal [facility] XR HIP LT 2 3V W PELVISon XR HIP LT 2 3V W PELVIS EXAM: XR HIP LT 2 3V W PELVIS 08/17/2020 11:16 PM EST [id number] CLINICAL STATEMENT: Pain COMPARISON: No prior studies are available at the time of dictation. TECHNIQUE: AP pelvis, AP and lateral views of the left hip are submitted. FINDINGS: There is no acute fracture and/or dislocation. The hip joint space is preserved. No periarticular calcifications. There is no evidence for significant joint effusion. Soft tissues are unremarkable. Bone mineralization is within normal limits for the patient's age. IMPRESSION: Unremarkable hip radiograph.. FOLLOW UP: Follow-up as clinically indicated. Electronically authenticated by: GIANLUCA CINTRON Date: 2020-08-17 23:40 Normal [facility] Vital Signs Date Time Vital Sign Value Performing Clinician Facility 11-29-2024 14:53-0400 Body mass index (BMI) [Ratio] 23.49 kg/m2 Nabeel Quinteros DO Work Phone: [facility] 11-29-2024 14:53-0400 Body temperature 97.5 [degF] Nabeel Quinteros DO Work Phone: [facility] 11-29-2024 14:53-0400 Body weight 68.04 kg Nabeel Quinteros DO Work Phone: [facility] 11-29-2024 14:53-0400 Diastolic blood pressure 78 mm[Hg] Nbaeel Quinteros DO Work Phone: [facility] 11-29-2024 14:53-0400 Heart rate 97 /min Nabeel Quinteros DO Work Phone: [facility] 11-29-2024 14:53-0400 SaO2% (BldA) [Mass fraction] 99 % Nabeel Quinteros DO Work Phone: [facility] 11-29-2024 14:53-0400 Systolic blood pressure 124 mm[Hg] Nabeel Quinteros DO Work Phone: [facility] 04-02-2024 13:31-0400 Body temperature 98.2 [degF] DO Azam Montanez Work Phone: [facility] 04-02-2024 13:31-0400 Diastolic blood pressure 81 mm[Hg] DO Azam Tarik Work Phone: [facility] 04-02-2024 13:31-0400 Heart rate 81 /min DO Azam Tarik Work Phone: [facility] 04-02-2024 13:31-0400 Respiratory rate 20 /min DO Azam Tarik Work Phone: [facility] 04-02-2024 13:31-0400 SaO2% (BldA) [Mass fraction] 99 % DO Azam Tarik Work Phone: [facility] 04-02-2024 13:31-0400 Systolic blood pressure 137 mm[Hg] DO Azam Tarik Work Phone: [facility] 04-02-2024 13:21-0400 Body height 170.18 cm DO Azam Tarik Work Phone: [facility] 04-02-2024 13:21-0400 Body weight 73 kg DO Azam Tarik Work Phone: [facility] 10-15-2023 13:12-0400 Body height 166.37 cm [facility] [place] 10-15-2023 13:12-0400 Body mass index (BMI) [Ratio] 26.4 kg/m2 [facility] 10-15-2023 13:12-0400 Body weight 73.02 kg [facility] [place] 08-06-2023 10:00-0500 Body height 166.37 cm Pete Galicia Other [facility] 08-06-2023 10:00-0500 Body mass index (BMI) [Ratio] 26.38 kg/m2 Pete Galicia Other [facility] [employer] Other 08-06-2023 10:00-0500 Body weight 73.03 kg Pete Galicia Other [facility] [employer] Other 08-06-2023 10:00-0500 Body weight 73.02 kg [facility] [place] 08-06-2023 10:00-0500 Diastolic blood pressure 66 mm[Hg] Pete Galicia Other [facility] 08-06-2023 10:00-0500 Systolic blood pressure 122 mm[Hg] Pete Galicia Other [facility] 02-08-2023 09:00-0400 Body weight 67 kg MD Tessa Caruso Work Phone: [facility] 02-08-2023 07:30-0400 Body temperature 97.6 [degF] MD Tessa Caruso Work Phone: [facility] 02-08-2023 07:30-0400 Diastolic blood pressure 57 mm[Hg] MD Tessa Caruso Work Phone: [facility] 02-08-2023 07:30-0400 Heart rate 49 /min MD Tessa Caruso Work Phone: [facility] 02-08-2023 07:30-0400 Respiratory rate 18 /min MD Tessa Caruso Work Phone: [facility] 02-08-2023 07:30-0400 SaO2% (BldA) [Mass fraction] 100 % MD Tessa Caruso Work Phone: [facility] 02-08-2023 07:30-0400 Systolic blood pressure 109 mm[Hg] MD Tessa Caruso Work Phone: [facility] 02-05-2023 14:40-0400 Body height 167 cm MD Tessa Caruso Work Phone: [facility] 10-06-2022 12:30-0400 Body height 166.37 cm Tessa Caruso Other [facility] [employer] Other 10-06-2022 12:30-0400 Body mass index (BMI) [Ratio] 24.09 kg/m2 Tessa Caruso Other [facility] [employer] Other 10-06-2022 12:30-0400 Body weight 66.68 kg Tessa Caruso Other [employer] Other 10-06-2022 12:30-0400 Diastolic blood pressure 60 mm[Hg] Tessa Caruso Other [employer] Other 10-06-2022 12:30-0400 SaO2% (BldA) [Mass fraction] 99 % Tessa Caruso Other [employer] Other 10-06-2022 12:30-0400 Systolic blood pressure 102 mm[Hg] Tessa Caruso Other [employer] Other Encounters Encounter Date Encounter Type Care Provider Facility Start: 11-29-2024 End: 11-29-2024 Office outpatient new 45 minutes Nabeel Quinteros DO Work Phone: [facility] Comment on above: Acute non-recurrent frontal sinusitis; Pharyngitis, unspecified etiology Start: 11-29-2024 End: 11-29-2024 ambulatory NABEEL QUINTEROS Not Available Start: 04-02-2024 End: 04-02-2024 Emergency department patient visit DO Azam Montanez Work Phone: [facility] Work Phone: Start: 01-05-2024 Non-patient / Non-visit DO Azam Montanez Work Phone: [facility] Work Phone: Start: 10-15-2023 End: 10-15-[address] [facility] Work Phone: Start: 10-15-2023 End: 10-15-2023 Patient encounter procedure [facility] Work Phone: Start: 08-06-2023 End: 08-06-2023 ambulatory Pete Galicia Other [employer] Other Start: 08-06-2023 Office outpatient visit 15 minutes Pete Galicia [facility] Start: 08-06-2023 End: 08-06-2023 Patient encounter procedure [facility]- Start: 06-30-2023 End: 06-30-2023 ambulatory Azma Montanez Facility:[facility] Start: 06-01-2023 End: 06-01-2023 ambulatory Jamie Lazar Other [facility] Other Start: 06-01-2023 Telephone encounter Jamie DEVLIN G Intake Clinician Start: 02-05-2023 End: 02-08-2023 Evaluation and management of inpatient MD Tessa Caruso Work Phone: [facility] Work Phone: Start: 10-06-2022 End: 10-06-2022 ambulatory Tessa Caruso Other [employer] Other Start: 10-06-2022 Office outpatient visit 15 minutes Tessa Caruso [facility] Start: 09-21-2022 End: 09-22-2022 ambulatory [place] Facility:[facility] Start: 08-19-2020 End: 08-20-2020 Patient encounter procedure TESSA CARUSO Facility: Start: 08-18-2020 End: 08-18-2020 Patient encounter procedure INOCENCIO CAO Facility: Procedures Date Procedure Procedure Detail Performing Clinician Start: 11-29-2024 End: 11-29-2024 Infectious agent dna/rna influenza 1st 2 types Nabeel Quinteros DO Work Phone: Start: 11-29-2024 Sars-cov-2 detection by dna/rna Nabeel Quinteros DO Work Phone: Start: 12-09-2015 Removal of suture [facility] Other Plan of Treatment Date Care Activity Detail Author Start: 03-05-2025 Influenza vaccination Influenz a Vaccine (Season Ended) [facility] Start: 02-08-2023 [facility] Start: 02-05-2023 Referral to [employer] Supervisor [facility] Start: 02-05-2023 Hospital admission [facility] Patient Education [facility] Work Phone: Patient referral [facility] Work Phone: Immunizations Immunization Date Immunization Notes Care Provider Fa jamaal 06-04-2023 influenza virus vacc ine, unspecified formulation Nabeel Quinteros DO Work Phone: [facility] Payers Date Payer Category Payer Self-pay 2022 Private Health Insurance [employer] CCN [id number] 2022 Unknown [id number] 2012 Unknown 2012 Unknown [id number] 1998 Unknown [id number] 1998 Unknown [id number] 1998 Unknown [id number] 1974 Unknown [id number] 1959 [employer] ( and others) [id number] Unknown Dana BC/BS [id number] Unknown [id number] Unknown [id number] Social History Date Type Detail Facility Unknown if ever smoked [facility] Other End: 02-04-2023 Sex Assigned At [facility] [employer] Other Start: 02-05-2023 End: 04-02-2024 Tobacco smoking status NHIS Smoker (finding) [facility] Start: 2000 Sex Assigned At Male F [facility] Start: 06-30-2023 Tobacco smoking status [facility] Ex-smoker (finding) [facility] Start: 05-22-2023 Tobacco smoking status [facility] Tobacco smoking consumption unknown [facility] Start: 10-12-2023 Alcoholic beverage intake [facility] Start: 2000 Sex assigned at Not on file [facility] Goals Date Patient Goal Desired Activity /State Functional Status Date Assessment Result Facility 02-08-2023 Functional status Patient at Baseline [facility] Work Phone: Mental Status Date Assessment Result Facility 02-08-2023 Cognitive function Cognitive Sta tus Patient at Baseline [facility] Work Phone: Clinical Notes 10-06-2022 to 11-29-2024 Roxie Maciel MA - 11/29/2024 2:45 PM EDT Note Date & Type Note Facility 11-29-2024 History of Presen t illness Narrative Images from the original note were not included. [address] , [address] [facility], [address] P: [phone] F: [phone] HPI Historian of HPI: patient Daryl Nino is a 24 y.o. male who presents today to the Urgent Care with the following complaints and denials which have been present for 3 day(s) C/O Denies Symptom Comments [] [] Runny Nose [x] [] Difficulty Swallowing [x] [] Sore Throat [x] [] Cough [] [x] Ear Pain [x] [] Fever [x] [] Chills [x] [] Nasal Congestion [] [x] Myalgia [] [x] Sinus Pain [x] [] Sinus Pressure Additional Comments: pt has taken mucinex, cepacol, and huan seltzer OTC medication with relief ROS A complete system ROS was performed and negative aside from the pertinent positives noted in the HPI and PE. IH Testing: The following tests were performed PCR Strep, Flu, and Covid SEE TEST(S) ORDERS FOR RESULTS PHYSICAL EXAM In house testing Flu, Covid, Strep negative Examination General Examination: General Examination: alert, oriented, normal affect, well appearing, in no acute distress, well developed, well nourished Head: normocephalic, atraumatic, frontal sinus tenderness Eyes: sclera non-icteric Ears: tympanic membrane intact, clear, auditory canal non inflamed Nose: congested with clear drainage. Oral Cavity: mucosa moist, no lesions Throat: PND noted erythematous anterior cervical adenopathy, bilateral easily moveable. Neck/Thyroid: no carotid bruit Lymph Nodes: no cervical adenopathy Heart: no murmurs, regular rate and rhythm, S1, S2 normal Lungs: clear to auscultation bilaterally Extremities: no edema, no cyanosis Neurologic: alert and oriented Psych: alert, oriented, cognitive function intact, cooperative with exam HPI, ROS, and PE reviewed and amended by Dr. Nabeel Quinteros as necessary. Written by ed Krueger MA TREATMENT PLAN 1. Acute non-recurrent frontal sinusitis DX and TX discussed. Take meds as directed. Push fluids. OTC tylenol and motrin as needed for pain. Follow with PCP as directed. 2. Pharyngitis, unspecified etiology DX reviewed. - STREP DNA PROBE - RAPID DNA COVID - INFLUENZA DNA PROBE documented in this encounter [facility] 08-06-2023 Evaluation note Encounter Date Diagnosis Assessment Notes Aug, Hemorrhoids (ICD-10 - K64.9) Pt to start docusate sodium or he can do miralax. Pt advised to switch from toilet paper to wet wipes Pt given recta care samples- 4 samples given Pt to not strain when using the restroom Pt to start a probiotic Pt to drink plenty of water. Pt RTO in 2 months Aug, Rectal bleeding (ICD-10 - K62.5) Pt states every now and then he gets bleeding [employer] Other 08-07-2023 Discharge summary Author Kam Frederick [facility] February 08, 2023 12:52pm Note Date/Time February 08, 2023 12: 53pm [facility] [address] [place] [address] Discharge Summary Signed Patient: Daryl Nino MR#: [id number] : 2000 Acct:[id number] Age/Sex: 22 / M Adm Date: 3 Loc: Room: [address] [place] [address]: Jose Alfredo Celaya MD Copies to: MD Kam Reynolds MD Marcia E Braun, MD~ Providers Date of Discharge: 02/08/23 Discharging Provider: Kam Frederick Primary Care Provider: Tessa Caruos Consults: 02/05/23 02:54 Consult to Case Management Routine 02/05/23 03:00 Consult to Dietitian Routine Discharge Diagnosis (1) Depression: Final Diagnosis Final Discharge Diagnosis: MDD Summary Hospital Course Hospital course: According to admission note: This is a 22-year-old male with reported history ofPTSD, anxiety, and depression who presents for inpatient admission due to worsening of feelings of depression.? 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 At that time, he reported wandering thoughts, turned to racing thoughts and having increased anxiety+ auditory and visual hallucinations. Patient was personally seen by me on the day of the encounter.? I reviewed the history and performed the higgins elements of the assessment.? I formulated the planof care and confirmed this with the medical student as noted below At the time of the interview Daryl presented as withdrawn, somnolent, and depressed.? He reports a longstanding history of depression which began a couple weeks ago .? He describes his depression as constant and that it hurts and describes its severity as an 8 out of 10 today. He said Prozac has not been helping and requested medication adjustment. He said Seroquel has been partiallyeffective and inquired about increasing the dose to help with AVH. Past psych history: Denies past psychiatric history Past hospitalizations: Denies previous hospitalizations Past suicide attempts: Denies previous suicide attempts Family psych history: Denies family history Previous medications: Patient reports that he cannot remember his medications Alcohol and drug use: Patient reports smoking a pack per day of cigarettes, but since he quit a few days ago.? Reports previously using alcohol, but is sober for 7 months. Living: Patient reports feeling safe at home and lives with his grandfather. 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 Relationships: Patient refused to answer when asked about relationships. Patient was treated with Seroquel. Lexapro was added to help manage his depression which was switched from Prozac. He tolerated the medication without any problems and did not report any side effects. He had gradual improvement ofhis depression during his hospitalization. His sleep and appetite were normal throughout his hospitalization. He did not exhibit any behavior concerning for suicidality. He attended groups and socialize with peers appropriately. He didnot have any conflict with peers or staff. As his symptoms improved and he feltthat his mood also improved. He was tolerating medications and felt that they were helpful for his depression and anxiety. On the day of discharge she reported that his depression and anxiety were more manageable. He did not report any suicidality. He was coupled discharge plan home and following up with outpatient services. Condition Condition at Discharge: Stable Status at Discharge Cognitive/behavioral status at discharge: Mental Status Exam: Appearance: grossly normal Mental Status: mental status grossly normal Mood: Euthymic mood Affect: Normal affect Speech and Movement: speech and movement normal and speech clear Attitude: cooperative Thought Process: normal Thought Content: Denied hallucinations, no homicidality and no suicidality Insight: Good Judgment: Good Functional status at discharge: independent ambulation Overall status at discharge: patient is back to baseline Time Spent with Patient Time spent providing/coordinating discharge services (# min): 30 Exam Physical Exam Vital Signs: Temp Pulse Resp BP Pulse Ox O2 Del Method 97.6 F 49 L 18 109/57 L 100 Room Air 02/08/23 07:30 02/08/23 07:30 02/08/23 07:30 02/08/23 07:30 02/08/23 07:30 02/08/23 07:30 Discharge Plan Discharge Plan Patient Disposition: Home Activity: No Activity Restriction Diet: Regular Additional Instructions: Regular Diet No Activity Restrictions Instructions: Depression, Adult (DC), [facility] DC Instructions Stand Alone Forms: Work/School Release Form Prescriptions: New benztropine 0.5 mg Tablet 0.5 mg PO Q6H PRN (Reason: Dystonia) Qty: 30 0RF trazodone 50 mg Tablet 50 mg PO QHS PRN (Reason: Insomnia) Qty: 30 0RF escitalopram oxalate 5 mg Tablet 5 mg PO QAM 30 Days Qty: 30 0RF quetiapine 50 mg Tablet 50 mg PO QHS 30 Days Qty: 30 0RF Continued hydroxyzine pamoate 25 mg capsule 25 mg PO BID PRN (Reason: Anxiety) Patient Comments: TAKE 1 TO 2 CAPSULES BY MOUTH TWICE A DAY NEEDED FOR ANXIETY OR SLEEP PROMOTION Rx Instructions: 25-50 mg Discontinued quetiapine 25 mg tablet 25 mg PO HS Patient Comments: TAKE 1 TABLET BY MOUTH AT BEDTIME mirtazapine 15 mg Tablet 15 mg PO QHS fluoxetine 20 mg Capsule 20 mg PO HS Follow Up: [facility] Hotline [Outside] [facility] [Outside] Tessa Caruso MD [Primary Care Provider] - (Please contact for any medical needs or concerns) Documented By: Kam Frederick MD 02/08/231249 Signed By: <Electronically signed by Kam Frederick MD> 02/08/23 1252 [facility] Work Phone: 1(315) 524-449508-06-2023 Progress note Author Kam Frederick [facility] February 07, 2023 10:23am Note Date/Time February 07, 2023 10: 23am [facility] [address] [place] [address] Psychiatry Progress Note Signed Patient: Daryl Nino MR#: [id number] : 2000 Acct:[id number] Age/Sex: 22 / M Adm Date: 3 Loc: Room: [address] [place] [address] Type : ADM IN Attending Dr: Jose Alfredo Celaya MD Copies to: ~ Date of Service: 02/07/2023 Subjective Subjective Narrative: Daryl reported that he is not too bad today. He is complaining of some knee pain. He stated that he slept well overnight but did have some trouble falling asleep. He reported that the dizziness that he was experiencing has been improving. He is tolerating his medication and has noticed an improvement in his anxiety and depression. He denied current suicidality. Mental Status Exam: Appearance: grossly normal Mental Status: mental status grossly normal Mood: Improving mood Affect: Improving affect Speech and Movement: speech and movement normal and speech clear Attitude: cooperative Thought Process: normal Thought Content: no hallucinations, no homicidality and no suicidality Insight: fair Judgment: fair Exam Physical Exam Vital Signs: Temp Pulse Resp BP Pulse Ox O2 Del Method 98.2 F 54 L 16 119/69 99 Room Air 02/07/23 07:30 02/07/23 07:30 02/07/23 07:30 02/07/23 07:30 02/07/23 07:30 02/07/23 09:00 Assessment/Plan Assessment/Plan (1) Depression: Code(s): F32.A - Depression, unspecified Status: Acute Plan Patient reported that the side effects have improved. Denied current suicidal ideation. Anticipate discharge Wednesday or Wednesday Continue Seroquel to 50 mg HS, Lexapro 5 mg PO Q daily Continue to monitor mental status Encourage group participation and medication compliance Risk benefits alternatives explained Documented By: Kam Frederick MD 02/07/23 102 Signed By: <Electronically signed by Kam Frederick MD> 02/07/23 [facility] Work Phone: 1(673) 337-118308-05-2023 Progress note Author Kam Frederick [facility] February 06, 2023 12:59pm Note Date/Time February 06, 2023 11: 16am [facility] [address] [place] [address] Psychiatry Progress Note Signed Patient: Daryl Nino MR#: [id number] : 2000 Acct:[id number] Age/Sex: 22 / M Adm Date: 3 Loc: 1S Room: [address] [place] [address] Type : ADM IN Attending Dr: Jose Alfredo Celaya MD Copies to: ~ Date of Service: 02/06/2023 Subjective Subjective Narrative: Daryl reported that he is doing okay. He reported that he did not have any panic attacks overnight. In the past he has been [facility] by the [facility] and was having some counseling over there. He reported that the medication that he tookmade him feel dizzy and he does not like how it made him feel. He does complainof some jaw pain and headaches which she thinks may be medication related as well. Mental Status Exam: Appearance: grossly normal Mental Status: mental status grossly normal Mood: Anxious mood Affect: Flat affect Speech and Movement: speech and movement normal and speech clear Attitude: cooperative Thought Process: normal Thought Content: no hallucinations, no homicidality and no suicidality Insight: fair Judgment: fair Exam Physical Exam Vital Signs: Temp Pulse Resp BP Pulse Ox O2 Del Method 98.1 F 58 L 18 105/57 L 100 Room Air 02/06/23 07:50 02/06/23 07:50 02/06/23 07:50 02/06/23 07:50 02/06/23 07:50 02/06/23 09:00 Assessment/Plan Assessment/Plan (1) Depression: Code(s): F32.A - Depression, unspecified Status: Acute Plan Patient reported that he feels dizzy today. He stated that he does not like howthe medication is making him feel and wants medication adjsuted Continue Seroquel to 50 mg HS, Lexapro 5 mg PO Q daily Will stop remeron, as patient thinks that this is causing side effects Continue to monitor patient's mental status Continue to monitor for suicidal ideation Documented By: Kam Frederick MD 02/06/23 1115 Signed By: <Electronically signed by Kam Frederick MD> 02/06/23 1256 [facility] Work Phone: 1(308) 949-696508-04-2023 History and physical note Author Bret hyman [facility] February 05, 2023 2:27pm Note Date/Time February 05, 2023 2:2 5pm [facility] [address] [place] [address] Psychiatry H&P Signed Patient: Daryl Nino MR#: [id number] : 2000 Acct:[id number] Age/Sex: 22 / M Adm Date: 3 Loc: 1S Room: 6L3749-4 Type: ADM IN Attending Dr: Jose Alfredo Celaya MD Copies to: MD Tessa Reynolds MD~ Date of Service: 02/05/2023 HPI History of Present Illness History of present illness: This is a 22-year-old male with reported history of PTSD, anxiety, and depression who presents for inpatient admission due to worsening of feelings of depression. 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 At that time, he reported wandering thoughts, turned to racing thoughts and having increased anxiety+ auditory and visual hallucinations. Patient was personally seen by me on the day of the encounter. I reviewed the history and performed the higgins elements of the assessment. I formulated the planof care and confirmed this with the medical student as noted below At the time of the interview Daryl presented as withdrawn, somnolent, and depressed. He reports a longstanding history of depression which began a couple weeks ago . He describes his depression as constant and that it hurts and describes its severity as an 8 out of 10 today. He said Prozac has not been helping and requested medication adjustment. He said Seroquel has been partiallyeffective and inquired about increasing the dose to help with AVH. Past psych history: Denies past psychiatric history Past hospitalizations: Denies previous hospitalizations Past suicide attempts: Denies previous suicide attempts Family psych history: Denies family history Previous medications: Patient reports that he cannot remember his medications Alcohol and drug use: Patient reports smoking a pack per day of cigarettes, but since he quit a few days ago. Reports previously using alcohol, but is sober for 7 months. Living: Patient reports feeling safe at home and lives with his grandfather. 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 Relationships: Patient refused to answer when asked about relationships. Mental status: Depressed Mood: Depressed, withdrawn, somnolent Affect: Uncooperative due to somnolence Speech and movement: Slow to answer, somewhat slurred speech, and slowed movements Attitude: Uncooperative due to somnolence Thought process: Normal Thought content: Denied SI/HI, AVH at this time Insight: Poor Judgment: Poor Review of systems -admits to constipation occurring for a week Constitutional: Denied fatigue, malaise. Neuro: Denies dizziness/lightheadedness, TBI, seizure, memory loss, numbness/tingling in extremities HEENT: Denied vision/hearing changes. Pulmonary: Denies SOB, dyspnea, cough, wheezing. Cardiac: Denies chest pain/pressure, edema, palpitations. GI: Denied abdominal pain, heartburn, N/V, and diarrhea : Denied dysuria, hematuria, polyuria. Physical exam Patient denied physical exam due to somnolence PMFSH Vaccinated for COVID-19?: Yes Medical History Abdominal pain Chronic knee pain Constipation Degenerative disk disease Nerve damage Recovering alcoholic Surgical History (Updated 02/05/23 @ 03:04 by Malinda Singh RN) No pertinent past surgical history Family History (Updated 02/05/23 @ 03:04 by Malinda Singh RN) Other No significant family history Social History Smoking Status: Current every day smoker Tobacco Type: cigarettes Substance Use Type: None Substance Abuse Comment: stopped drinking in September 2022 Social History Comments: lives with grandfather Meds Medications and Allergies Allergies No Known Allergies Allergy (Verified 02/05/23 00:56) Home Medications fluoxetine 20 mg capsule 20 mg PO HS 02/05/23 [History Confirmed 02/05/23] hydroxyzine pamoate 25 mg capsule 25 mg PO BID PRN Anxiety 02/05/23 [History Confirmed 02/05/23] mirtazapine 15 mg tablet 15 mg PO QHS 02/05/23 [History Confirmed 02/05/23] quetiapine 25 mg tablet 25 mg PO HS 02/05/23 [History Confirmed 02/05/23] Exam Physical Exam Vital Signs: Temp Pulse Resp BP Pulse Ox O2 Del Method 98.1 F 54 L 20 129/78 99 Room Air 02/05/23 01:48 02/05/23 01:48 02/05/23 01:48 02/05/23 01:48 02/05/23 01:48 02/05/23 01:48 Assessment/Plan (1) Depression: Code(s): F32.A - Depression, unspecified Status: Acute Plan Increase Seroquel to 50 mg HS Switch Prozac to Lexapro 5 mg PO Q daily Continue home meds and adjust accordingly. Continue to monitor patient's mental status Continue to monitor for suicidal ideation Documented By: Bret Celaya MD 3 0919 Signed By: <Electronically signed by Bret Cleaya MD> 02/05/23 1427 [facility] Work Phone: 1([phone]) 710-793204-04-2023 Evaluation note* Encounter Date Diagnosis Assessment Notes Treatment Notes Treatment Clinical Notes Oct, Right anterior knee pain (ICD-10 - M25.561) Multiple joint issues - will focus on most painful - R knee and proceed with ortho referral. Oct, Primary insomnia (ICD-10 - F51.01) States he will call back with the name of a med he took from his friend in [place] that was effective. [employer] Other Evaluation note* Diagnosis Onset Date Resolution Status Depression acute [facility] Work Phone: Evaluation noteNo InformationNort [employer] Other Evaluation noteNo assessment information available [facility] Work Phone: Evaluation note* Diagnosis Acute non-recurrent frontal sinusitis Pharyngitis, unspecified etiology documented in this encounter [facility] N[facility] - Reported* Type Description Date Surgical History Problem Title : past surgical history reviewed, Problem Description : past surgical history reviewed, Problem Comment : reviewed - no changes required, Problem Status : Active, Surgical History Problem Title : surg ical procedures, hx of, Problem Description : surgical procedures, hx of, Problem Comment : none, Problem Status : Active, [employer] Other History general Narrative - Reported* Type Description Date Medical History high blood pressure Surgical History Problem Title : past surgical history reviewed, Problem Description : past surgical history reviewed, Problem Comment : reviewed - no changes required, Problem Status : Active, Surgical History Problem Title : surg ical procedures, hx of, Problem Description : surgical procedures, hx of, Problem Comment : none, Problem Status : Active, Surgical History hip surgery Hospitalization History colonoscopy [employer] Other Hospital Discharge instructions Additional Instructions Regular Diet No [facility] Work Phone: Summary Purpose Family History Relationship Condition Age at Onset Recorded Date/T verna Not Specified No pertinent family history Unknown Relationship Condition Age at Onset Recorded Date/T verna Not Specified Unknown family medical history Unknown Advance Directives Advance Directive Response Recorded Date/ Time Advance Directives No February 05 023 12:11am Reason for Referral Reason *Waiting for appt. [facility] Diagnosis 1 Right anterior knee pain (M25.561) Referral Organization [facility] Referring Provider First Name Tessa Referring Provider Last Name Simran Referring Provider Specialty Family Medi cine Referred Organization [facility] Referred Provider Jaime Lopez Referred Address [address] [place],[address] Referred Provider Specialty Orthopedic S urgery Referral Priority Routine General Notes ShimonhectorKallie slaughter 02:22:23 PM >received today, sent P2P Chief Complaint and Reason for Visit Chief Complaint PTSD,MDD,Anxiety Reason for Visit Depression Chief Complaint Follow Scope For Hem orrhoids 2 month f/u-hemorrhoids/rectal bleeding Chief Complaint rt eye pain Additional Source Comments (unrecognized sect ion and content) No Status Records FoundNo Status Records FoundNo Status Records FoundNo Status Records Found INFORMATION SOURCE (unrecogn ized section and content) DATE CREATED AUTHOR 08/23/2020 [facility] DATE CREATED AUTHOR AUTHOR'S ORGANIZ ATION 09/22/2022 [facility] DATE CREATED AUTHOR AUTHOR'S ORGANIZ ATION 06/19/2024 [facility] DATE CREATED AUTHOR AUTHOR'S ORGANIZ ATION 12/02/2024 [facility] EPIC REASON FOR VISIT (unrecogniz ed section and content) Check UpMAIL PPWPatient is h ere for a follow up from a colonoscopy Care Teams (unrecognized sec tion and content) Team Status: Active Member Role Status Dates Azam Montanez DO Primary Care Provider Active Team Status: Active Member Role Status Dates Azam Montanez DO Primary Care Provider Active Start: January 05, 2024 Duy Cuellar DO Attending Provider Active Sta rt: January 05, 2024 Team Status: Inactive Member Role Status Dates Azam Montanez DO Primary Care Provider Active Start: April 02, 2024 End: April 02, 2024 Cooper Reddy APRN Emergency Provider Active Start: April 02, 2024 End: April 02, 2024 Team Status: Active Member Role Status Dates Tessa Caruso MD Primary Care Provider Active Team Status: Inactive Member Role Status Dates Tessa Caruso MD Primary Care Provider Active Jose Alfredo Celaya MD Admit Provider, Attending Pr ovider Active Team Status: Inactive Member Role Status Dates Pete Galicia APRN Attending Provider Active Start: August 06, 2023 End: August 06, 2023 Team Status: Inactive Member Role Status Dates Azam Montanez DO Primary Care Provider Active Start: October 15, 2023 End: October 15, 2023 Pete Galicia APRN Attending Provider Active Start: October 15, 2023 End: October 15, 2023 Arcgis Developer Relationship Specialty Start Date End Date Unallocated, Noms Provider, [address] [place], [place] [id number] PCP - General 05/22/23 Goals (unrecognized section and content) Goals may be documented in a n alternate section FOR RECORDS PERTAINING TO PATIENTS WHO ARE OR HAVE BEEN ENROLLED IN A CHEMICAL DEPENDENCY/SUBSTANCEABUSE PROGRAM, SOME INFORMATION MAY BE OMITTED. This clinical summary was aggregated from multiple sources. Caution should be exercised in using it in the provision of clinical care. This summary normalizes information from multiple sources, and as a consequence, information in this document may materially change the coding, format and clinical context of patient data. In addition, data may be omitted in some cases. CLINICAL DECISIONS SHOULD BE BASED ON THE PRIMARY CLINICAL RECORDS. [facility] [employer] [facility]. provides no warranty or guarantee of the accuracy or completeness of information in this document.
--- NOTE | 2025-02-27 18:13 | XR_ITS ---
The [address] [address] Patient Name: GUTIERREZ ESTES MRN: [id number] date: 2000 Sex: M Assigned Patient Location: ED.MAIN Current Patient Location: ED.MAIN Accession/Order Number: [id number] Exam Date: 02/27/2025 18:34 Report Date: 02/27/2025 18:56 At the request of: JAVIER DARLING Procedure: XR shoulder LT min 2V XR shoulder LT min 2V 02/27/2025 6:37 PM SIGNS AND SYMPTOMS: Chronic left shoulder pain PROTOCOL: Frontal, Grashey, and scapular Y views of the left shoulder COMPARISON: None FINDINGS: The glenohumeral joint and acromioclavicular joint are preserved. There is periosteal thickening along the lateral aspect of the proximal left humeral metaphysis suspicious for malignancy. There is heterogeneous hypoattenuation in the proximal shaft of the left humerus. The visualized left hemithorax is grossly intact. XR/XR shoulder LT min 2V IMPRESSION: There is periosteal thickening along the lateral aspect of the proximal left humeral metaphysis suspicious for malignancy. There is heterogeneous hypoattenuation in the proximal shaft of the left humerus. No pathologic fracture. Impression dictated by: Shloom Snell M.D. 02/27/2025 6:56 PM Dictation Location: [place] [address] Electronically authenticated by: [id number] Y Date: 02/27/2025 18:56
[2025-02-27] MEDS: KETOROLAC TROMETHAMINE 60 MG/2 ML VIAL IM (18:28)
--- NOTE | 2025-02-27 18:55 | ED.GENADUL1 ---
HPI HPI - General Adult General Chief complaint: Extremity Injury, Upper Stated complaint: Extremity Injury, Upper Time Seen by Provider: 02/27/25 18:13 Source: patient Mode of arrival: walk-in Limitations: no limitations History of Present Illness HPI narrative: 24-year-old male presents for chief complaint of left shoulder pain. Patient has difficulty with range of motion over the last 24 to 48 hours. Denies any known injury or trauma. States he has a history of rotator cuff injury in the service but has never had any further workup. Patient is difficulty elevating above his head or any posterior range of motion. right hand Dominant. Related Data Previous Rx's ?Medication ?Instructions ?Recorded ketorolac 10 mg tablet 10 mg PO TID PRN pain #10 tabs 01/04/24 ondansetron 4 mg disintegrating 4 mg PO Q6H PRN nausea and 01/04/24 tablet vomiting #12 tabs prednisone 20 mg tablet 20 mg PO DAILY 5 days #5 tabs 02/27/25 Allergies Allergy/AdvReac Type Severity Reaction Status Date / Time No Known Drug Allergies Allergy Verified 02/27/25 18:04 Opioid HPI Opioid Management Most Recent Opioid Data: Last Pain Scale 5 Today, 18:00 Ur Phencyclidine Scrn, (NEGATIVE) Negative 02/04/23, 18:19 Review of Systems ROS Status of ROS 10 or more systems reviewed and unremarkable except as noted in history and below PFSH PFSH Social History Smoking status: Former smoker Little interest or pleasure in doing things: not at all Feeling down, depressed, or hopeless: not at all Exam Narrative Exam Narrative: All Systems are negative except as noted/marked.All systems reviewed and otherwise negative Nurses note and vital signs reviewed and patient is not hypoxic. General: The patient appears well and in no apparent distress. Patient is resting comfortably on cart. Skin: Warm, dry, no pallor noted. There is no rash noted. Head: Normocephalic, atraumatic Eye: Normal conjunctiva, no drainage, EOMI. PERRL Ears, Nose, Mouth, and Throat: oral mucosa is moist. Nares patent. Mouth without vesicles. Ear canals patent. Tm's without Erythema Musculoskeletal: Range of motion of the left shoulder is limited difficulty at elevation above 180 degrees flexion extension is noted. Patient is able to supinate and pronate. The patient has no evidence of calf tenderness, no pitting edema, symmetrical pulses noted bilaterally Neurological: A&O x4, normal speech Psychiatric: Cooperative Constitutional Vital Signs, click to edit/add: Last Vital Signs Temp 98.1 F 02/27/25 18:00 Pulse 80 02/27/25 18:00 Resp 16 02/27/25 18:00 BP 129/85 02/27/25 18:00 Pulse Ox 98 02/27/25 18:00 O2 Del Method Room Air 02/27/25 18:00 Course Vital Signs Vital signs: Vital Signs Temperature 98.1 F 02/27/25 18:00 Pulse Rate 80 02/27/25 18:00 Respiratory Rate 16 02/27/25 18:00 Blood Pressure 129/85 02/27/25 18:00 Pulse Oximetry 98 02/27/25 18:00 Oxygen Delivery Method Room Air 02/27/25 18:00 Temperature 98.1 F 02/27/25 18:00 Pulse Rate 80 02/27/25 18:00 Respiratory Rate 16 02/27/25 18:00 Blood Pressure 129/85 02/27/25 18:00 Pulse Oximetry 98 02/27/25 18:00 Oxygen Delivery Method Room Air 02/27/25 18:00 Medical Decision Making MDM Narrative Medical decision making narrative: 24-year-old male presents for chief complaint of left shoulder pain. Patient has difficulty with range of motion over the last 24 to 48 hours. Denies any known injury or trauma. States he has a history of rotator cuff injury in the service but has never had any further workup. Patient is difficulty elevating above his head or any posterior range of motion. right hand Dominant. Left shoulder x-ray shows no significant deformity or dislocation. Patient was medicated here with Toradol. Discharged home with 5 days of prednisone. Follow-up with orthopedist. Diagnosis left shoulder sprain. Differential Diagnosis Differential Diagnosis: shoulder sprain, tendonitis Medical Records Medical records reviewed: Yes I reviewed the patient's medical records Lab Data Lab results reviewed: Yes I reviewed the patient's lab results Imaging Data shoulder: Radiologist's impression: ITS Impressions Shoulder X-Ray 02/27/25 18:13 IMPRESSION: There is periosteal thickening along the lateral aspect of the proximal left humeral metaphysis suspicious for malignancy. There is heterogeneous hypoattenuation in the proximal shaft of the left humerus. No pathologic fracture. Impression dictated by: Shlomo Snell M.D. 02/27/2025 6:56 PM [facility] Electronically authenticated by: [id number] Y Date: 02/27/2025 18:56 Discharge Plan Discharge Chief Complaint: Extremity Injury, Upper Clinical Impression: Shoulder sprain Patient Disposition: Home, Self-Care Time of Disposition Decision: 18:53 Condition: Good Prescriptions / Home Meds: New prednisone 20 mg tablet 20 mg PO DAILY 5 Days Qty: 5 0RF No Action ketorolac 10 mg tablet 10 mg PO TID PRN (Reason: pain) Qty: 10 0RF ondansetron 4 mg tablet,disintegrating 4 mg PO Q6H PRN (Reason: nausea and vomiting) Qty: 12 0RF Print Language: German Instructions: Shoulder Sprain (ED) Referrals: Physician,Non-Staff, [Primary Care Provider] - 1 week Artis Villalobos MD [Physician, Orthopedics] - 1 week
--- NOTE | 2025-02-27 19:09 | CT_ITS ---
The [address] [address] Patient Name: GUTIERREZ ESTES MRN: [id number] date: 2000 Sex: M Assigned Patient Location: ER Current Patient Location: Accession/Order Number: [id number] Exam Date: 02/27/2025 19:32 Report Date: 02/27/2025 20:08 At the request of: JAVIER DARLING Procedure: CT Shoulder LT w/ Con CT Shoulder LT w/ Con 02/27/2025 7:48 PM SIGNS AND SYMPTOMS: pain, xray suspicious for cancer in humerus TECHNIQUE: Multidetector CT axial slices of the left shoulder with IV contrast. Multiplanar reformats were performed and viewed on a separate workstation and reviewed to further define anatomy and possible pathology. CT was performed with one or more of the following dose reduction techniques: Automated exposure control, adjustment of the mA and/or kV according to patient size, or use of iterative reconstruction technique. COMPARISON: 02/26/2025 FINDINGS: There is cortical irregularity with periosteal thickening along the lateral aspect of the proximal left humeral metaphysis. This corresponds to the radiographic abnormality and measures 2.0 x 0.1 x 1.1 cm in greatest dimension. There are irregular typically narrow zones of transition. No adjacent accompanying soft tissue abnormality. The glenohumeral joint and acromioclavicular joint are preserved. CT/CT Shoulder LT w/ Con IMPRESSION: Cortical irregularity is noted with periosteal reaction along the lateral aspect of the proximal left humeral metaphysis. No accompanying underlying intramedullary lesion. No accompanying soft tissue mass or abnormal enhancement. Follow-up with contrast-enhanced MRI is recommended. Malignancy is felt to be less likely given the features of this lesion. The lesion may represent an osteochondroma. Impression dictated by: Shlomo Snell M.D. 02/27/2025 8:08 PM Dictation Location: [place] [address] Electronically authenticated by: [id number] Y Date: 02/27/2025 20:08
--- NOTE | 2025-02-27 19:13 | PC.NURSE ---
patient reports left shoulder pain for years. aching feeling. denies any new injuries or old.
== END 2025-02-27 20:40 | disposition home or self-care (01) ==
PROVIDERS: Emergency Provider Student in an Organized Health Care Education/Training Program
DX: S43.402A Unspecified sprain of left shoulder joint, initial encounter (principal); X58.XXXA Exposure to other specified factors, initial encounter; Z87.891 Personal history of nicotine dependence
CPT/HCPCS: 73030; 73201; 96372; 99285; J1885; Q9967

== ENCOUNTER 2025-03-08 15:11 | Outpatient (OUT) | payer OTHER, SELFPAY ==
--- OUTSIDE RECORDS SUMMARY | 2025-03-08 15:13 | XMS_ITS | Clinical Summary ---
Author Organization [facility] tem Address [facility] [address] [place] [address] Care Team Providers Care Customer Solutions Supervisor Name Role Phone Tessa Khalil MD Primary Care Provider [phone] Allergies No known active allergies Medications No known medications Social History Tobacco Use Types Packs/Day Years Used Date Smoking Tobacco: Never Smokeless Tobacco: Current Childcare Answer Date Recorded Childcare Unknown 12/14/2018 Employment Answer Date Recorded Employment Unknown 12/14/2018 Purpose - Life Answer Date Recorded Purpose and direction in life Unknown Sex and Gender Information Value Date Recorded Sex Assigned at Not on file Legal Sex Male 3:47 AM EDT Gender Identity Not on file Sexual Orientation Not on file Last Filed Vital Signs Vital Sign Reading Time Taken Comments Blood Pressure 151/96 10/31/2016 8:17 PM EDT Pulse 108 10/31/2016 8:17 PM EDT Temperature 36.7 C (98 F) 10/31/2016 8:17 PM EDT Respiratory Rate - - Oxygen Saturation 97% 10/31/2016 8:17 PM EDT Inhaled Oxygen Concentration - - Weight 68 kg (150 lb) 10/31/2016 8:17 PM EDT Height 173.7 cm (5' 8.4 ) 10/31/2016 8:17 PM EDT Body Mass Index 22.54 10/31/2016 8:17 PM EDT Plan of Treatment Not on file Medical Devices Not on file Insurance [facility] Care Teams Customer Solutions Supervisor Relationship Specialty Start Date End Date Tessa Khalil MD [address] [place] [id number] PCP - General 10/31/16
--- OUTSIDE RECORDS SUMMARY | 2025-03-08 15:13 | XMS_ITS | Clinical Summary ---
Author Organization [facility] Address [address], [address] [place] [address] Care Team Providers Care Casting Machine Operator Helper Name Role Phone Daniel Camarena Primary Care Provider [phone] Social History Tobacco Use Types Packs/Day Years Used Date Smoking Tobacco: Never Assessed Sex and Gender Information Value Date Recorded Sex Assigned at Not on file Legal Sex Male 2:13 PM EDT Gender Identity Not on file Sexual Orientation Not on file Plan of Treatment Not on file Insurance [facility] Care Teams Casting Machine Operator Helper Relationship Specialty Start Date End Date Daniel Camarena [address] [place] [address] PCP - General 03/04/15
--- OUTSIDE RECORDS SUMMARY | 2025-03-08 15:13 | XMS_ITS | Clinical Summary ---
Author Organization [facility] Address [address] [place] [address] Care Team Providers Care Vice President Client Services Name Role Phone Unallocated, Noms Provider MD Primary Care Provi xavi Allergies No known active allergies Medications amitriptyline (Elavil) 25 MG tablet TAKE ONE TO TWO TABLETS BY MOUTH AT BEDTIME NEEDED FOR SLEEP 3 Active hydrOXYzine pamoate (Vistaril) 25 MG capsule TAKE ONE OR TWO CAPSULES BY MOUTH TWICE A DAY NEEDED FOR ANXIETY OR SLEEP PROMOTION 3 Active QUEtiapine (SEROquel) 25 MG tablet Take 25 mg by mouth at bedtime 3 Active methylPREDNISol one (Medrol Dospak) 4 MG tabletsIndicati ons:Dysfunction of right eustachian tube,Non-recurr ent acute serous otitis media of right ear As directed 21 tablet 4 Active Additional Information Patient not taking.Reported on 11/29/2024 sertraline (Zoloft) 100 MG tablet Take 200 mg by mouth Daily 4 Active SUMAtriptan (Imitrex) 50 MG tablet Take 50 mg by mouth 1 (one) time if needed for migraine 5 Active Social History Tobacco Use Types Packs/Day Years Used Date Smoking Tobacco: Unknown Tobacco Cessation:Counseling Given: Not Answered Alcohol Use Standard Drinks/Week Comments Defer 0 (1 standard drink = 0.6 oz pur e alcohol) Sex and Gender Information Value Date Recorded Sex Assigned at Not on file Legal Sex Male 11:09 PM EDT Gender Identity Not on file Sexual Orientation Not on file Last Filed Vital Signs Vital Sign Reading Time Taken Comments Blood Pressure 124/78 11/29/2024 2:53 PM EDT Pulse 97 11/29/2024 2:53 PM EDT Temperature 36.4 C (97.5 F) 11/29/2024 2:53 PM EDT Respiratory Rate - - Oxygen Saturation 99% 11/29/2024 2:53 PM EDT Inhaled Oxygen Concentration - - Weight 68 kg (150 lb) 11/29/2024 2:53 PM EDT Height 170.2 cm (5' 7 ) 09/02/2020 12:00 PM EST Body Mass Index 23.49 09/02/2020 12:00 PM EST Plan of Treatment Health Maintenance Due Date Last Done Comments Influenza Vaccine (#1) 2025 3, 04/09/2022, 06/02/2021, Additional history exists Insurance [address] [place] [address] [facility] CCN Care Teams Vice President Client Services Relationship Specialty Start Date End Date Unallocated, Noms MD Noel [address] [place], [place] [id number] PCP - General 05/22/23
--- OUTSIDE RECORDS SUMMARY | 2025-03-08 15:13 | XMS_ITS | Clinical Summary ---
Author Organization [facility] Address [address] [place] [address] Care Team Providers Care Line Prep Cook Name Role Phone Skylar Arellano Primary Care Provider [phone] Allergies No known active allergies Medications No known medications Active Problems Problem Noted Date Diagnosed Date Alopecia areata 12/22/2007 Social History Tobacco Use Types Packs/Day Years Used Date Smoking Tobacco: Never Assessed Sex and Gender Information Value Date Recorded Sex Assigned at Not on file Legal Sex Male 8:13 AM EST Gender Identity Not on file Sexual Orientation Not on file Plan of Treatment Health Maintenance Due Date Last Done Comments Peds To Adult Transition Initial Discussion 2010 Peds To Adult Transition Annual Assessment 2012 HPV Vaccine (1 - Male 3-dose series) 2013 Anxiety Screening 2016 Depression Screening 2016 HIV Screening 2016 Hepatitis C Screening 2016 DTaP,Tdap,Td Vaccine (1 - Tdap) 2017 Hepatitis B Vaccine (1 of 3 - 19+ 3-dose series) 08/08 Influenza Vaccine (#1) 2025 Insurance BLUE CARD PPO OOS Member Subscriber Plan / Payer (Ef fective 2002-Present) Name:Trung Daryl Relation to Subscriber:Child Name:DAJA NINO Date of :1973 (Home) Address: [address] [place] [id number] Payer ID:[id number] (NAIC) Type:PPO Address: [address] [place] [id number] Care Teams Line Prep Cook Relationship Specialty Start Date End Date Skylar Arellano [address] [place] [address] PCP - General 10/04/07
--- OUTSIDE RECORDS SUMMARY | 2025-03-08 15:13 | XMS_ITS | Patient Health Record ---
Author Organization [facility] Address [address] [address] Care Team Providers Care Hand Hide Stretcher Name Role Phone Radiology, [facility] Primary Care Provider [phone] Reason For Referral No Information Social History Social History Tobacco Use: Social Info Question Answer Notes Tobacco Use/Smoking How long has it been since you last smoked? > 10 years Plan Of Treatment Pending Test Test Name Order Date XR HIP 11/11/2023 XR SHOULDER 2V 11/11/2023 Insurance Providers Payer Name Payer Address Payer Phone Subscriber Number Group Number Insured Name Patient Relationship to Insured Coverage Start Date Coverage End Date [facility] [id number] [place] [address] [place] [id number] GUTIERREZ ESTES Self - patient is the insured
--- NOTE | 2025-03-08 15:19 | XR_ITS ---
The [address] [address] Patient Name: GUTIERREZ ESTES MRN: [id number] date: 2000 Sex: M Assigned Patient Location: RAD Current Patient Location: [facility] Accession/Order Number: [id number] Exam Date: 03/08/2025 15:40 Report Date: 03/08/2025 16:05 At the request of: NON-STAFF PHYSICIAN MD Procedure: XR foreign body eye MILLICENT Orbits 2 views. Reason for exam: Pre-MRI. FINDINGS: No radiopaque foreign body. No bony destruction is seen. XR/XR foreign body eye MILLICENT IMPRESSION: No radiopaque foreign body. Impression dictated by: Phong Clark Jr., DHunterOHunter 03/08/2025 4:05 PM Dictation Location: [place] [address] Electronically authenticated by: [id number] Y Date: 03/08/2025 16:05
--- NOTE | 2025-03-08 15:56 | MR_ITS ---
The [address] [address] Patient Name: GUTIERREZ ESTES MRN: [id number] date: 2000 Sex: M Assigned Patient Location: [facility] Current Patient Location: [facility] Accession/Order Number: [id number] Exam Date: 03/08/2025 16:40 Report Date: 03/08/2025 21:08 At the request of: NON-STAFF PHYSICIAN Procedure: MR shoulder LT wo/w con MR LEFT SHOULDER CLINICAL INFORMATION: Left shoulder pain. Follow-up lesion in left humerus COMPARISON: 02/27/2025. PROCEDURE: Axial, oblique coronal, and oblique sagittal long TR images of the shoulder were obtained with and without IV contrast. CONTRAST: 14 mL of intravenous Dotarem FINDINGS: ROTATOR CUFF AND ASSOCIATED STRUCTURES Biceps Tendon: The biceps tendon is normally situated within the bicipital groove. No complete or partial biceps tendon tear is present. Rotator cuff: Edema is noted along the bursal surface of the supraspinatus tendon suggesting tendinopathy. The supraspinatus, infraspinatus, subscapularis, and teres minor tendons are intact. Musculature: There is no muscular tear, contusion, or atrophy. Bursa: No bursal effusion or thickening is seen. OSSEOUS STRUCTURES Acromioclavicular joint: There are mild degenerative changes of the acromioclavicular joint. A type 2 acromion configuration is noted. There is no anterior or lateral acromial downsloping. Bones: No Hill-Sachs, reverse Hill-Sachs, or bony Bankart lesions are seen. There are no fractures or regions of abnormal bone marrow signal intensity. There is a similar area of bony exostosis without evidence of edema or abnormal postcontrast enhancement along the lateral margin of the proximal humeral metaphysis. This most likely represents a small osteochondroma. GLENOHUMERAL JOINT Joint: There is no glenohumeral joint effusion. Cartilage: No focal hyaline cartilage defects are noted. Labrum: The labrum is not optimally evaluated. Other support structures: No capsular or ligamentous abnormality is seen. MR/MR shoulder LT wo/w con IMPRESSION: 1. There is a similar area of bony exostosis without evidence of edema or abnormal postcontrast enhancement along the lateral margin of the proximal humeral metaphysis. This most likely represents a small osteochondroma. 2. Edema is noted along the bursal surface of the supraspinatus tendon suggesting tendinopathy. Impression dictated by: Shlomo Snell M.D. 03/08/2025 9:08 PM Dictation Location: [place] [address] Electronically authenticated by: [id number] Y Date: 03/08/2025 21:08
--- OUTSIDE RECORDS SUMMARY | 2025-03-08 16:03 | XMS_ITS | CCD ---
Author Organization [facility] Care Team Providers Care Public Health Technician Name Role Phone [employer] Unavailable [...] Primary Care Provider PINEDA Reddy Emergency Provider [phone] Azam Montanez Primary Care Unavailable Jamie Lazar Attending Unavailable Jamie Lazar Admitting Unavailable Azam Montanez Primary Care Unavailable Cooper Reddy Attending Unavailable Cooper Reddy Admitting Unavailable NABEEL QUINTEROS Attending Unavailable Unallocated , Noms Provider Primary Care Provi xavi Allergies Allergy Classification Reported Allergen(s) Allergy Type Date of Onset Reaction(s) Facility (2 sources) patient allergy list reviewed by nurse or physicia Propensity to adverse reactions 6 Comment:Done [employer] Other (2 sources) Allergies Reconciled Propensity to adverse reactions Unknown [employer] Other Medications Current Medications Medication Drug Class(es) [...] RNA OLIVIER+probe Ql (Unsp spec) Negative Negative [facility] Healthcare No Panel Informationon 11-29 INFLUENZA A Negative Negative [facility] Healthcare INFLUENZA B Negative Negative [facility] Healthcare [facility] Healthcare [facility] Healthcare S. pyogenes DNA OLIVIER+probe No m (Unsp spec)on 11-29-2024 RESULT Negative Negative [facility] Drug Screen,Urineon 06-30-20 23 Amphetamine Screen,Urine Negative Normal Negative The Replaced By [facility] Comment on above: Performed By: #### U RDS #### [facility] [address] [place] [address] [place] Barbiturate Screen,Urine Negative Normal Negative The Replaced By [facility] Comment on above: Performed By: #### U RDS #### [facility] [address] [place] [id number] [place] Benzodiazepines Screen,Urine Negative Normal Negative The Replaced By [facility] Comment on above: Performed By: #### U RDS #### [facility] [address] [place] [address] [place] Cannabinoid Screen,Urine Negative Normal Negative The Replaced By [facility] Comment on above: Result Comment: Thes e are unconfirmed results and should not be used for legal purposes. Drug Cut-Off Concentration: AMPH 1000 ng/mL SUKHI 200 ng/mL TANK 200 ng/mL COCM 300 ng/mL OP 300 ng/mL PCP 25 ng/mL THC 20 ng/mL PERFORMED BY: [place] [address] PATHOLOGIST TRANSFER COORDINATOR ROBYN CAPONE M.D. Performed By: #### U RDS #### [facility] [address] [place] [address] Cocaine Screen,Urine Negative Normal Negative The Replaced By [facility] Comment on above: Performed By: #### U RDS #### [address] Opiate Screen,Urine Negative Normal Negative [facility] Comment on above: Performed By: #### U RDS #### [address] Phencyclidine Screen,Urine Negative Normal Negative The Replaced By [facility] Comment on above: Performed By: #### U RDS #### [address] Cholesterol [Mass/volume] in Serum or PlasmaOrdered By: Bret Celaya on 02-05-2023 Cholesterol [Mass/Vol] 122 mg/dL 140-200 [facility] Comment on above: Chol less than 200 m g/dl low riskChol 201-239 mg/dl borderline riskChol 240 mg/dl and greater high risk Cholesterol in LDL Calc [Mas s/Vol]Ordered By: Bret Celaya on 02-05-2023 Cholesterol in LDL [Mass/Vol] 74 mg/dL 0-100 [facility] Comment on above: LDL ATP III CLASSIFI CATIONLDL less than 100 mg/dL OptimalLDL 100-129 mg/dL Near or above optimalLDL 130-159 mg/dL Borderline highLDL 160-189 mg/dL HighLDL greater than 189 mg/dL Very high Cholesterol in VLDL Calc [Ma ss/Vol]Ordered By: Bret Celaya on 02-05-2023 Cholesterol in VLDL [Mass/Vol] 9 mg/dL [facility] Serum or plasma high density lipoprotein (HDL) cholesterol measurementOrdered By: Bret Celaya on 02-05-2023 Cholesterol in HDL [Mass/Vol] 39 mg/dL 23-92 [facility] Comment on above: HDL CHOL ATP-III CLA SSIFICATION Cardiovascular RiskHDL > or equal to 60 mg/dL LOWHDL < 40 mg/dL HIGH Serum or plasma total choles terol/high density lipoprotein (HDL) cholesterol mass ratOrdered By: Bret Celaya on 02-05-2023 Cholesterol.total/Chol esterol in HDL [Mass ratio] 3.1 {ratio} <5.0 [facility] Thyrotropin [Units/volume] i n Serum or PlasmaOrdered By: Bret Celaya on 02-05-2023 TSH Qn 2.78 m[IU]/L 0.45-5.33 [facility] Triglyceride [Mass/volume] i n Serum or PlasmaOrdered By: Bret Celaya on 02-05-2023 Triglyceride [Mass/Vol] 47 mg/dL 0-149 [facility] Comment on above: TRIG ATP III CLASSIF ICATIONTRIG less than 150 mg/dL NormalTRIG 150-199 mg/dL Borderline highTRIG 200-500 mg/dL High TRIG greater than 500 mg/dL Very highStandard traceable to the Center for Disease Conrtrol and Prevention (CDC) test method. Vitamin D+Metabolites [Mass/ volume] in Serum or PlasmaOrdered By: Bret Celaya on 02-05-2023 Vitamin D+Metabolites [Mass/Vol] 43.1 ng/mL 30-100 [facility] Comment on above: VITAMIN D STATUS 25( [place])VITAMIN D RANGE (ng/mL) Deficient <20 Insufficient 20 to <30Sufficient 30 to 100Reference: Denia MF,Dk NC, Tali ALEXANDER, et al. Evaluation,treatment, and prevention of vitamin D deficiency; an Endocrine Society clinical practice guideline. JCEM. 2010; 96(7):1911-30. Consenton 09-21-2022 Consent [id number]. 00CD:127 Normal [facility] Registrationon 09-21-2022 Registration [id number]. [id number]:127 Normal [facility] UA RANDOM W/MICROSCOPICon Bacteria LM.HPF (Urine sed) [#/Area] NONE SEEN Normal NONE SEEN [facility] Comment on above: Performed By: #### U AMIC #### [facility] [address] [place] [address] Bonnie Alanna Bilirubin [Mass/Vol] Negative Normal NEGATIVE [facility] Comment on above: Performed By: #### U AMIC #### [facility] [address] [place] [address] [place] BLOOD Negative Normal NEGATIVE [facility] Comment on above: Performed By: #### U AMIC #### [facility] [address] [place] [address] [place] Alanna CAST NONE SEEN Normal NONE SEEN [facility] Comment on above: Performed By: #### U AMIC #### [facility] [address] [place] [address] [place]nie Alanna Clarity (U) SL CLOUDY Abnormal CLEAR [facility] Comment on above: Performed By: #### U AMIC #### [facility] [address] [place] [address] [place]nie Alanna Color (U) YELLOW Normal YELLOW [facility] Comment on above: Performed By: #### U AMIC #### [facility] [address] [place] [address] Bonnie Alanna Crystals LM Nom (Urine sed) NONE SEEN Normal NONE SEEN [facility] Comment on above: Performed By: #### U AMIC #### [facility] [address] [place], [place] [id number] [place]nie Alanna Epithelial cells LM.HPF (Urine sed) [#/Area] RARE Normal NONE SEEN /RARE [facility] Comment on above: Performed By: #### U AMIC #### [facility] [address] [place] [address] Bonnie Alanna Glucose [Mass/Vol] Negative Normal NEGATIVE The [facility] Comment on above: Performed By: #### U AMIC #### [facility] [address] [id number] [place]nie Alanna Ketones Ql (U) Negative Normal NEGATIVE [facility] Comment on above: Performed By: #### U AMIC #### [facility] [address] [id number] [place]nie Alanna MUCOUS NONE SEEN Normal NONE SEEN [facility] Comment on above: Performed By: #### U AMIC #### [facility] [address] [address] [place]nie Alanna Nitrite Ql (U) Negative Normal NEGATIVE [facility] Comment on above: Performed By: #### U AMIC #### [facility] [address] [place] [address] Bonnie Alanna pH (Bld) 6.5 Normal 5-9 [facility] Comment on above: Performed By: #### U AMIC #### [facility] [address] [address] [place]nie Alanna RBC (Bld) [#/Vol] NONE SEEN Abnormal 0-2 [facility] Comment on above: Performed By: #### U AMIC #### [facility] [address] [id number] [place]nie Alanna SPEC GRAVITY 1.015 Normal 1.005-<=1.025 [facility] Comment on above: Performed By: #### U AMIC #### [facility] [address] [address] [place] Alanna UA PROTEIN Negative Normal NEGATIVE/ TRACE [facility] Comment on above: Performed By: #### U AMIC #### [facility] [address] [id number] [place]nie Alanna Urobilinogen Qn (U) 0.2 EU/dl Normal 0.2 - 1.0 [facility] Comment on above: Performed By: #### U AMIC #### [facility] [address] [id number] [place]nie Alanna WBC (Bld) [#/Vol] NONE SEEN Normal NONE SEEN [facility] Comment on above: Performed By: #### U AMIC #### [facility] [address] [place], [place] [address] Bonnie Mondragon WBC (Bld) [#/Vol] Negative Normal NEGATIVE [facility] Comment on above: Performed By: #### U AMIC #### [facility] [address] [place], [place] [address] Bonnieza Mondragon XR KNEE MILLICENT 4V or [...] by: MARYANNE ZARCO Date: 2020-08-19 20:26 Normal [facility] XR LSPINE MIN 4 VIEWSon 08-05 TSH [...] by: MARYANNE ZARCO Date: 2020-08-19 20:27 Normal [facility] XR SHOULDER RT 2V or >on XR [...] by: MARYANNE ZARCO Date: 2020-08-19 20:24 Normal [facility] XR HIP LT 2 3V W PELVISon [...] by: GIANLUCA CINTRON Date: 2020-08-17 23:40 Normal [facility] Vital Signs Date Time Vital Sign Value Performing Clinician Facility 11-29-2024 14:53-0400 Body mass index (BMI) [Ratio] 23.49 kg/m2 Nabeel Quinteros DO Work Phone: [facility] 11-29-2024 14:53-0400 Body temperature 97.5 [degF] Nabeel Quinteros DO Work Phone: [facility] 11-29-2024 14:53-0400 Body weight 68.04 kg Nabeel Quinteros DO Work Phone: [facility] 11-29-2024 14:53-0400 Diastolic blood pressure 78 mm[Hg] Nabeel Quinteros DO Work Phone: [facility] 11-29-2024 14:53-0400 Heart rate 97 /min Nabeel Quinteros DO Work Phone: [facility] 11-29-2024 14:53-0400 SaO2% (BldA) [Mass fraction] 99 % Nabeel Quinteros DO Work Phone: [facility] 11-29-2024 14:53-0400 Systolic blood pressure 124 mm[Hg] Nabeel Quinteros DO Work Phone: [facility] 04-02-2024 13:31-0400 Body temperature 98.2 [degF] DO Azam Montanez Work Phone: [facility] 04-02-2024 13:31-0400 Diastolic blood pressure 81 mm[Hg] DO Azam Tarik Work Phone: [facility] 04-02-2024 13:31-0400 Heart rate 81 /min DO Azam Tarik Work Phone: [facility] 04-02-2024 13:31-0400 Respiratory rate 20 /min DO Azam Tarik Work Phone: [facility] 04-02-2024 13:31-0400 SaO2% (BldA) [Mass fraction] 99 % DO Azam Tarik Work Phone: [facility] 04-02-2024 13:31-0400 Systolic blood pressure 137 mm[Hg] DO Azam Tarik Work Phone: [facility] 04-02-2024 13:21-0400 Body height 170.18 cm DO Azam Tarik Work Phone: [facility] 04-02-2024 13:21-0400 Body weight 73 kg DO Azam Tarik Work Phone: [facility] 10-15-2023 13:12-0400 Body height 166.37 cm [facility] 10-15-2023 13:12-0400 Body mass index (BMI) [Ratio] 26.4 kg/m2 [facility] 10-15-2023 13:12-0400 Body weight 73.02 kg [facility] 08-06-2023 10:00-0500 Body height 166.37 cm Pete Galicia Other [facility] 08-06-2023 10:00-0500 Body mass index (BMI) [Ratio] 26.38 kg/m2 Pete Galicia Other [employer] [facility] [employer] Other 08-06-2023 10:00-0500 Body weight 73.03 kg Pete Galicia Other [employer] [facility] [employer] Other 08-06-2023 10:00-0500 Body weight 73.02 kg [facility] 08-06-2023 10:00-0500 Diastolic blood pressure 66 mm[Hg] Pete Galicia Other [facility] 08-06-2023 10:00-0500 Systolic blood pressure 122 mm[Hg] Pete Galicia Other [facility] 02-08-2023 09:00-0400 Body weight 67 kg MD Tessa Caruso Work Phone: [facility] 02-08-2023 07:30-0400 Body temperature 97.6 [degF] MD Tessa Caruso Work Phone: [facility] 02-08-2023 07:30-0400 Diastolic blood pressure 57 mm[Hg] MD Tessa Caruso Work Phone: [facility] 02-08-2023 07:30-0400 Heart rate 49 /min MD Tessa Caruso Work Phone: [facility] 02-08-2023 07:30-0400 Respiratory rate 18 /min MD Tessa Caruso Work Phone: [facility] 02-08-2023 07:30-0400 SaO2% (BldA) [Mass fraction] 100 % MD Tessa Caruso Work Phone: [facility] 02-08-2023 07:30-0400 Systolic blood pressure 109 mm[Hg] MD Tessa Caruso Work Phone: [facility] 02-05-2023 14:40-0400 Body height 167 cm MD Tessa Caruso Work Phone: [facility] 10-06-2022 12:30-0400 Body height 166.37 cm Tessa Caruso Other [facility] [employer] Other 10-06-2022 12:30-0400 Body mass index (BMI) [Ratio] 24.09 kg/m2 Tessa Caruso Other [employer] [facility] [employer] Other 10-06-2022 12:30-0400 Body weight 66.68 kg Tessa Caruso Other [employer] Other 10-06-2022 12:30-0400 Diastolic blood pressure 60 mm[Hg] eTssa Caruso Other [employer] Other 10-06-2022 12:30-0400 SaO2% (BldA) [Mass fraction] 99 % Tessa Caruso Other [employer] Other 10-06-2022 12:30-0400 Systolic blood pressure 102 mm[Hg] Tessa Caruso Other [employer] Other Encounters Encounter Date Encounter Type Care Provider Facility Start: 11-29-2024 End: 11-29-2024 Office outpatient new 45 minutes Nabeel Quinteros DO Work Phone: [facility] Comment on above: Acute non-recurrent frontal sinusitis; Pharyngitis, unspecified etiology Start: 11-29-2024 End: 11-29-2024 ambulatory NABEEL QUINTEROS Not Available Start: 04-02-2024 End: 04-02-2024 Emergency department patient visit DO Azam Montanez Work Phone: [facility] Work Phone: Start: 01-05-2024 Non-patient / Non-visit DO Azam Montanez Work Phone: Replaced By [facility] Work Phone: Start: 10-15-2023 End: 10-15-2023 ambulatory [facility] Work Phone: Start: 10-15-2023 End: 10-15-2023 Patient encounter procedure Replaced By [facility] Work Phone: Start: 08-06-2023 End: 08-06-2023 ambulatory Pete Galicia Other [employer] Other Start: 08-06-2023 Office outpatient visit 15 minutes Pete Galicia [facility] Start: 08-06-2023 End: 08-06-2023 Patient encounter procedure Replaced By [facility]- Start: 06-30-2023 End: 06-30-2023 ambulatory Azam Montanez Facility:[facility] Start: 06-01-2023 End: 06-01-2023 ambulatory Jamie Lazar Other [facility] [employer] Other Start: 06-01-2023 Telephone encounter Jamie DEVLIN G Senior Media Director Start: 02-05-2023 End: 02-08-2023 Evaluation and management of inpatient MD Tessa Caruso Work Phone: [facility] Work Phone: Start: 10-06-2022 End: 10-06-2022 ambulatory Tessa Caruso Other [employer] Other Start: 10-06-2022 Office outpatient visit 15 minutes Tessa Caruso [facility] Start: 09-21-2022 End: 09-22-2022 ambulatory Frederick [place] Facility:[facility] Start: 08-19-2020 End: 08-20-2020 Patient encounter [...] Influenza vaccination Influenz a Vaccine (Season Ended) [facility] Start: 02-08-2023 [facility] Start: 02-05-2023 Referral to Mineralogy Teacher [facility] Start: 02-05-2023 Hospital admission [facility] Patient Education [facility] Work Phone: Patient referral [facility] Work Phone: Immunizations Immunization Date Immunization Notes Care Provider Fa jamaal 06-04-2023 influenza virus vacc ine, unspecified formulation Nabeel Quinteros DO Work Phone: [facility] Payers Date Payer Category Payer Self-pay 2022 Private Health Insurance [employer] CCN [id number] 2022 Unknown [id number] 2012 Unknown 2012 Unknown [id number] 1998 Unknown [id number] 1998 Unknown [id number] 1998 Unknown [id number] 1974 Unknown [id number] 1959 [employer] ( and others) [id number] Unknown Dana BC/BS [id number] Unknown [id number] Unknown [id number] Social History Date Type Detail Facility Unknown if ever smoked [facility] [employer] Other End: 02-04-2023 Sex Assigned At [facility] [employer] Other Start: 02-05-2023 End: 04-02-2024 Tobacco smoking status NHIS Smoker (finding) [facility] Start: 2000 Sex Assigned At Male F [facility] Start: 06-30-2023 Tobacco smoking status [facility] Ex-smoker (finding) [facility] Start: 05-22-2023 Tobacco smoking status [facility] Tobacco smoking consumption unknown [facility] Start: 10-12-2023 Alcoholic beverage intake [facility] Start: 2000 Sex assigned at Not on file [facility] Goals Date Patient Goal Desired Activity /State Functional Status Date Assessment Result Facility 02-08-2023 Functional status Patient at Baseline [facility] Work Phone: Mental Status Date Assessment Result Facility 02-08-2023 Cognitive function Cognitive Sta tus Patient at Baseline [facility] Work Phone: Clinical Notes 10-06-2022 to 11-29-2024 Roxie Maciel MA - 11/29/2024 2:45 PM EDT Note Date & Type Note Facility 11-29-2024 History of Presen t illness Narrative Images from the original note were not included. [address] , [address] [facility], [address] P: [phone] F: [phone] HPI Historian of HPI: patient Daryl Nino [...] INFLUENZA DNA PROBE documented in this encounter [facility] 08-06-2023 Evaluation note Encounter Date Diagnosis Assessment [...] every now and then he gets bleeding [employer] Other 08-07-2023 Discharge summary Author Kam Frederick [facility] February 08, 2023 12:52pm Note Date/Time February 08, 2023 12: 53pm [facility] [address] [place] [address] Discharge Summary Signed Patient: Daryl Nino MR#: [id number] : 2000 Acct:[id number] Age/Sex: 22 / M Adm Date: 3 Loc: Room: [address] [place] [address]: Jose Alfredo Celaya MD Copies to: MD Kam Reynolds MD Marcia E Braun, MD~ Providers Date of Discharge: 02/08/23 Discharging Provider: Kam Frederick Primary Care Provider: Tessa Caruso Consults: 02/05/23 02:54 Consult to Case Management [...] No Activity Restrictions Instructions: Depression, Adult (DC), [facility] [place] Instructions Stand Alone Forms: [...] Capsule 20 mg PO HS Follow Up: [facility] Hotline [Outside] [place] [facility] [place] [Outside] Tessa Caruso MD [Primary Care Provider] - (Please contact for any medical needs or concerns) Documented By: Kam Fredreick MD 02/08/231249 Signed By: <Electronically signed by Kam Frederick MD> 02/08/23 1252 [facility] Work Phone: 1(613) 580-203108-06-2023 Progress note Author Kam Frederick [facility] February 07, 2023 10:23am Note Date/Time February 07, 2023 10: 23am [facility] [address] [place] [address] Psychiatry Progress Note Signed Patient: Daryl Nino MR#: [id number] : 2000 Acct:[id number] Age/Sex: 22 / M Adm Date: 3 Loc: Room: [address] [place] [address] Type : ADM IN Attending Dr: Jose [...] 02/07/23 102 Signed By: <Electronically signed by aKm Frederick MD> 02/07/23 [facility] Work Phone: 1(413) 624-254308-05-2023 Progress note Author Kam Frederick [facility] February 06, 2023 12:59pm Note Date/Time February 06, 2023 11: 16am [facility] [address] [place] [address] Psychiatry Progress Note Signed Patient: Daryl Nino MR#: [id number] : 2000 Acct:[id number] Age/Sex: 22 / M Adm Date: 3 Loc: 1S Room: [address] [place] [address] Type : ADM IN Attending Dr: Jose Alfredo Celaya MD Copies to: ~ Date of Service: 02/06/2023 Subjective Subjective Narrative: Daryl reported that he is doing okay. He reported that he did not have any panic attacks overnight. In the past [place] been [place] the [place] and was having some counseling [place] there. [...] <Electronically signed by Kam Frederick MD> 02/06/23 1258 [facility] Work Phone: [phone]) 628-330108-04-2023 History and physical note Author Bret hyman [facility] February 05, 2023 2:27pm Note Date/Time February 05, 2023 2:2 5pm [facility] [address] [place] [address] Psychiatry H&P Signed Patient: Daryl Nino MR#: [id number] : 2000 Acct:[id number] Age/Sex: 22 / M Adm Date: 3 Loc: 1S Room: 9L0247-9 Type: ADM IN Attending Dr: Jose Alfredo [...] 0919 Signed By: <Electronically signed by Bret Celaya MD> 02/05/23 1427 [facility] Work Phone: [phone] 509-991404-04-2023 Evaluation note* Encounter Date Diagnosis Assessment Notes Treatment Notes Treatment Clinical Notes Oct, Right anterior knee pain (ICD-10 - M25.561) Multiple joint issues - will focus on most painful - R knee and proceed with ortho referral. Oct, Primary insomnia (ICD-10 - F51.01) States he will call back with the name of a med he took from his friend in [place] that was effective. [employer] Other Evaluation note* Diagnosis Onset Date Resolution Status Depression acute [facility] Work Phone: Evaluation noteNo [employer] Other Evaluation noteNo assessment information available [facility] Work Phone: Evaluation note* Diagnosis Acute non-recurrent [...] Comment : none, Problem Status : Active, [employer] Other History general Narrative - Reported* Type [...] Surgical History hip surgery Hospitalization History colonoscopy [employer] Other Hospital Discharge instructions Additional Instructions Regular Diet No Activity [facility] Work Phone: Summary Purpose Family History Relationship Condition Age at Onset Recorded Date/T verna Not Specified No pertinent family history Unknown Relationship Condition Age at Onset Recorded Date/T verna Not Specified Unknown family medical history Unknown Advance Directives Advance Directive Response Recorded Date/ Time Advance Directives No February 05 023 12:11am Reason for Referral Reason *Waiting for appt. Replaced By [facility] Diagnosis 1 Right anterior knee pain (M25.561) Referral Organization [facility] Referring Provider First Name Tessa Referring Provider Last Name Simran Referring Provider Specialty Family Medi cine Referred Organization [facility] Referred Provider Jaime Lopez Referred Address [address] [place],[phone] Referred Provider Specialty Orthopedic S urgery Referral [...] DATE CREATED AUTHOR AUTHOR'S ORGANIZ ATION 09/22/2022 [facility] DATE CREATED AUTHOR AUTHOR'S ORGANIZ ATION 06/19/2024 [facility] DATE CREATED AUTHOR AUTHOR'S ORGANIZ ATION 12/02/2024 [facility] EPIC REASON FOR VISIT (unrecogniz [...] October 15, 2023 End: October 15, 2023 Public Health Technician Relationship Specialty Start Date End Date Unallocated, [place] Provider, [address] [place], [place] [id number] PCP - General 05/22/23 Goals (unrecognized section [...] BE BASED ON THE PRIMARY CLINICAL RECORDS. [facility]. provides no warranty or guarantee of the accuracy or completeness of information in this document.
--- NOTE | 2025-03-08 16:17 | XR_ITS ---
The [address] [address] Patient Name: GUTIERREZ ESTES MRN: [id number] date: 2000 Sex: M Assigned Patient Location: RAD Current Patient Location: [facility] Accession/Order Number: [id number] Exam Date: 03/08/2025 16:20 Report Date: 03/08/2025 16:42 At the request of: NON-STAFF PHYSICIAN MD Procedure: XR hand MILLICENT 2V Pre-MRI assessment of both hands to assess for metallic foreign body. No metallic foreign body. Normal hands. XR/XR hand MILLICENT 2V IMPRESSION: No metallic foreign body. Impression dictated by: Frederick Keita M.D. 03/08/2025 4:42 PM Dictation Location: [place] [address] Electronically authenticated by: [id number] Y Date: 03/08/2025 16:42
== END 2025-03-08 15:12 | disposition home or self-care (01) ==
LOC: RAD 15:11
DX: M25.512 Pain in left shoulder (principal); D16.02 Benign neoplasm of scapula and long bones of left upper limb
CPT/HCPCS: 70030; 73120; 73223; A9575

== ENCOUNTER 2025-03-29 10:52 | Outpatient (OUT) | payer OTHER, SELFPAY ==
--- NOTE | 2025-03-29 | XR_ITS ---
The [address] [address] Patient Name: GUTIERREZ ESTES MRN: [id number] date: 2000 Sex: M Assigned Patient Location: [facility] Current Patient Location: [facility] Accession/Order Number: [id number] Exam Date: 03/29/2025 10:55 Report Date: 03/29/2025 12:26 At the request of: DARLINE TREJO DO Procedure: XR shoulder LT min 2V LEFT SHOULDER - - 4 views CLINICAL HISTORY: M25.512 LT SHOULDER PAIN COMPARISON: Left shoulder 03/08/2025 FINDINGS: There appears to be periosteal reaction along the right humeral neck. No definitive fracture line is seen. AC and glenohumeral joints appear unremarkable. XR/XR shoulder LT min 2V IMPRESSION: THERE APPEARS TO BE PERIOSTEAL REACTION INVOLVING THE HUMERAL NECK . NO DEFINITIVE FRACTURE LINE IS SEEN. OCCULT FRACTURE OR POSSIBLY UNDERLYING MASS CANNOT BE EXCLUDED. PLEASE NOTE THIS IS NOT CLEARLY SEEN ON A PRIOR MRI STUDY OF THE LEFT SHOULDER 03/08/2025. Impression dictated by: Phong Clark Jr., D.O. 03/29/2025 12:26 PM Dictation Location: [place] [address] Electronically authenticated by: [id number] Y Date: 03/29/2025 12:26
--- OUTSIDE RECORDS SUMMARY | 2025-03-29 10:58 | XMS_ITS | CCD ---
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 Role Phone [employer] Unavailable [...] Provider MD Jose Alfredo Celaya Admit Provider [phone] MD Jose Alfredo Celaya Attending Provider Jamie Lazar Unavailable Pete Galicia Unavailable DO Azam Montanez Primary Care Provider PINEDA Reddy Emergency Provider [phone] Azam Montanez Primary Care Unavailable Jamie Lazar [...] physicia Propensity to adverse reactions 6 Comment:Done [employer] Other (2 sources) Allergies Reconciled Propensity to adverse reactions Unknown [employer] Other Medications Current Medications Medication Drug Class(es) [...] RNA OLIVIER+probe Ql (Unsp spec) Negative Negative [facility] Healthcare No Panel Informationon 11-29 INFLUENZA A Negative Negative [facility] INFLUENZA B Negative Negative [facility] S. pyogenes DNA OLIVIER+probe No m (Unsp spec)on 11-29-2024 RESULT Negative Negative [facility] Drug Screen,Urineon 06-30-20 23 Amphetamine Screen,Urine Negative Normal Negative [facility] Comment on above: Performed By: #### U RDS #### [facility] [address] [place] [address] [place] Barbiturate Screen,Urine Negative Normal Negative [facility] Comment on above: Performed By: #### U RDS #### [facility] [address] [id number] [place] Benzodiazepines Screen,Urine Negative Normal Negative [facility] Comment on above: Performed By: #### U RDS #### [facility] [address] [place] [address] [place] Cannabinoid Screen,Urine Negative Normal Negative [facility] Comment on above: Result Comment: Thes e are unconfirmed results and should not be used for legal purposes. Drug Cut-Off Concentration: AMPH 1000 ng/mL SUKHI 200 ng/mL TANK 200 ng/mL COCM 300 ng/mL OP 300 ng/mL PCP 25 ng/mL THC 20 ng/mL PERFORMED BY: [place] [address] PATHOLOGIST GENERAL TECHNICIAN ROBYN CAPONE M.D. Performed By: #### U RDS #### [facility] [address] [place] [address] Cocaine Screen,Urine Negative Normal Negative [facility] Comment on above: Performed By: #### U RDS #### [address] Opiate Screen,Urine Negative Normal Negative [facility] Comment on above: Performed By: #### U RDS #### [address] Phencyclidine Screen,Urine Negative Normal Negative [facility] Comment on above: Performed By: #### U RDS #### [address] Cholesterol [Mass/volume] in Serum or PlasmaOrdered By: Bret Celaya on 02-05-2023 Cholesterol [Mass/Vol] 122 mg/dL 140-200 [facility] Comment on above: Chol less than 200 m g/dl low riskChol 201-239 mg/dl borderline riskChol 240 mg/dl and greater high risk Cholesterol in LDL Calc [Mas s/Vol]Ordered By: Bret Celaya on 02-05-2023 Cholesterol in LDL [Mass/Vol] 74 mg/dL 0-100 [facility] Comment on above: LDL ATP III CLASSIFI CATIONLDL less than 100 mg/dL OptimalLDL 100-129 mg/dL Near or above optimalLDL 130-159 mg/dL Borderline highLDL 160-189 mg/dL HighLDL greater than 189 mg/dL Very high Cholesterol in VLDL Calc [Ma ss/Vol]Ordered By: Bret Celaya on 02-05-2023 Cholesterol in VLDL [Mass/Vol] 9 mg/dL [facility] Serum or plasma high density lipoprotein (HDL) cholesterol measurementOrdered By: Bret Celaya on 02-05-2023 Cholesterol in HDL [Mass/Vol] 39 mg/dL 23-92 [facility] Comment on above: HDL CHOL ATP-III CLA SSIFICATION Cardiovascular RiskHDL > or equal to 60 mg/dL LOWHDL < 40 mg/dL HIGH Serum or plasma total choles terol/high density lipoprotein (HDL) cholesterol mass ratOrdered By: Bret Celaya on 02-05-2023 Cholesterol.total/Chol esterol in HDL [Mass ratio] 3.1 {ratio} <5.0 [facility] Thyrotropin [Units/volume] i n Serum or PlasmaOrdered By: Bret Celaya on 02-05-2023 TSH Qn 2.78 m[IU]/L 0.45-5.33 [facility] Triglyceride [Mass/volume] i n Serum or PlasmaOrdered By: Bret Celaya on 02-05-2023 Triglyceride [Mass/Vol] 47 mg/dL 0-149 [facility] Comment on above: TRIG ATP III CLASSIF ICATIONTRIG less than 150 mg/dL NormalTRIG 150-199 mg/dL Borderline highTRIG 200-500 mg/dL High TRIG greater than 500 mg/dL Very highStandard traceable to the Center for Disease Conrtrol and Prevention (CDC) test method. Vitamin D+Metabolites [Mass/ volume] in Serum or PlasmaOrdered By: Bret Celaya on 02-05-2023 Vitamin D+Metabolites [Mass/Vol] 43.1 ng/mL 30-100 [facility] Comment on above: VITAMIN D STATUS 25( [place])VITAMIN D RANGE (ng/mL) Deficient <20 Insufficient 20 to <30Sufficient 30 to 100Reference: Denia MF,Dk NC, Tali ALEXANDER, et al. Evaluation,treatment, and prevention of vitamin D deficiency; an Endocrine Society clinical practice guideline. JCEM. 2010; 96(7):1911-30. Consenton 09-21-2022 Consent [id number] 01 [id number]. 00CD:127 Normal [facility] [place] Registrationon 09-21-2022 Registration [id number] 01 [id number]. 00CD:127 Normal [facility] UA RANDOM W/MICROSCOPICon Bacteria LM.HPF (Urine sed) [#/Area] NONE SEEN Normal NONE SEEN [facility] Comment on above: Performed By: #### U AMIC #### [facility] [address] [place] [address] [place] Bilirubin [Mass/Vol] Negative Normal NEGATIVE [facility] Comment on above: Performed By: #### U AMIC #### [facility] [address] [place] [address] [place] BLOOD Negative Normal NEGATIVE [facility] Comment on above: Performed By: #### U AMIC #### [facility] [address] [place] [address] [place] CAST NONE SEEN Normal NONE SEEN [facility] Comment on above: Performed By: #### U AMIC #### [facility] [address] [place] [address] [place] Clarity (U) SL CLOUDY Abnormal CLEAR [facility] Comment on above: Performed By: #### U AMIC #### [facility] [address] [place] [address] [place] Color (U) YELLOW Normal YELLOW [facility] Comment on above: Performed By: #### U AMIC #### [facility] [address] [place] [address] [place] Crystals LM Nom (Urine sed) NONE SEEN Normal NONE SEEN [facility] Comment on above: Performed By: #### U AMIC #### [facility] [address] [place], [place] [address] [place] Epithelial cells LM.HPF (Urine sed) [#/Area] RARE Normal NONE SEEN /RARE [facility] Comment on above: Performed By: #### U AMIC #### [facility] [address] [place] [address] [place] Glucose [Mass/Vol] Negative Normal NEGATIVE [facility] Comment on above: Performed By: #### U AMIC #### [facility] [address] [phone] [place] Ketones Ql (U) Negative Normal NEGATIVE [facility] Comment on above: Performed By: #### U AMIC #### [facility] [address] [phone] [place] MUCOUS NONE SEEN Normal NONE SEEN [facility] Comment on above: Performed By: #### U AMIC #### [facility] [address] [address] [place] Nitrite Ql (U) Negative Normal NEGATIVE [facility] Comment on above: Performed By: #### U AMIC #### [facility] [address] [place] [address] [place] pH (Bld) 6.5 Normal 5-9 [facility] Comment on above: Performed By: #### U AMIC #### [facility] [address] [address] [place] RBC (Bld) [#/Vol] NONE SEEN Abnormal 0-2 [facility] Comment on above: Performed By: #### U AMIC #### [facility] [address] [phone] [place] SPEC GRAVITY 1.015 Normal 1.005-<=1.025 [facility] Comment on above: Performed By: #### U AMIC #### [facility] [address] [address] [place] UA PROTEIN Negative Normal NEGATIVE/ TRACE [facility] Comment on above: Performed By: #### U AMIC #### [facility] [address] [phone] [place] Urobilinogen Qn (U) 0.2 EU/dl Normal 0.2 - 1.0 [facility] Comment on above: Performed By: #### U AMIC #### [facility] [address] [phone] [place] WBC (Bld) [#/Vol] NONE SEEN Normal NONE SEEN [facility] Comment on above: Performed By: #### U AMIC #### [facility] [address] [place], [place] [address] Bonnie Mondragon WBC (Bld) [#/Vol] Negative Normal NEGATIVE [facility] Comment on above: Performed By: #### U AMIC #### [facility] [address] [place], [place] [address] Bonnieza Mondragon XR KNEE MILLICENT 4V or [...] by: MARYANNE ZARCO Date: 2020-08-19 20:26 Normal [facility] XR LSPINE MIN 4 VIEWSon 08-05 TSH [...] by: MARYANNE ZARCO Date: 2020-08-19 20:27 Normal [facility] XR SHOULDER RT 2V or >on XR [...] by: MARYANNE ZARCO Date: 2020-08-19 20:24 Normal [facility] XR HIP LT 2 3V W PELVISon [...] by: GIANLUCA CINTRON Date: 2020-08-17 23:40 Normal [facility] Vital Signs Date Time Vital Sign Value Performing Clinician Facility 11-29-2024 14:53-0400 Body mass index (BMI) [Ratio] 23.49 kg/m2 Nabeel Quinteros DO Work Phone: [facility] 11-29-2024 14:53-0400 Body temperature 97.5 [degF] Nabeel Quinteros DO Work Phone: [facility] 11-29-2024 14:53-0400 Body weight 68.04 kg Nabeel Quinteros DO Work Phone: [facility] 11-29-2024 14:53-0400 Diastolic blood pressure 78 mm[Hg] Nabeel Quinteros DO Work Phone: [facility] 11-29-2024 14:53-0400 Heart rate 97 /min Nabeel Quinteros DO Work Phone: [facility] 11-29-2024 14:53-0400 SaO2% (BldA) [Mass fraction] 99 % Nabeel Quinteros DO Work Phone: [facility] 11-29-2024 14:53-0400 Systolic blood pressure 124 mm[Hg] Nabeel Quinteros DO Work Phone: [facility] 04-02-2024 13:31-0400 Body temperature 98.2 [degF] DO Azam Montanez Work Phone: [facility] 04-02-2024 13:31-0400 Diastolic blood pressure 81 mm[Hg] DO Azam Tarik Work Phone: [facility] 04-02-2024 13:31-0400 Heart rate 81 /min DO Azam Tarik Work Phone: [facility] 04-02-2024 13:31-0400 Respiratory rate 20 /min DO Azam Tarik Work Phone: [facility] 04-02-2024 13:31-0400 SaO2% (BldA) [Mass fraction] 99 % DO Azam Tarik Work Phone: [facility] 04-02-2024 13:31-0400 Systolic blood pressure 137 mm[Hg] DO Azam Atrik Work Phone: [facility] 04-02-2024 13:21-0400 Body height 170.18 cm DO Azam Tarik Work Phone: [facility] 04-02-2024 13:21-0400 Body weight 73 kg DO Azam Tarik Work Phone: [facility] 10-15-2023 13:12-0400 Body height 166.37 cm [facility] 10-15-2023 13:12-0400 Body mass index (BMI) [Ratio] 26.4 kg/m2 [facility] 10-15-2023 13:12-0400 Body weight 73.02 kg [facility] 08-06-2023 10:00-0500 Body height 166.37 cm Pete Galicia Other [facility] 08-06-2023 10:00-0500 Body mass index (BMI) [Ratio] 26.38 kg/m2 Pete Galicia Other [facility] [employer] Other 08-06-2023 10:00-0500 Body weight 73.03 kg Pete Galicia Other [facility] [employer] Other 08-06-2023 10:00-0500 Body weight 73.02 kg [facility] 08-06-2023 10:00-0500 Diastolic blood pressure 66 mm[Hg] Pete Galicia Other [facility] 08-06-2023 10:00-0500 Systolic blood pressure 122 mm[Hg] Pete Galicia Other [facility] 02-08-2023 09:00-0400 Body weight 67 kg MD Tessa Caruso Work Phone: [facility] 02-08-2023 07:30-0400 Body temperature 97.6 [degF] MD Tessa Caruso Work Phone: [facility] 02-08-2023 07:30-0400 Diastolic blood pressure 57 mm[Hg] MD Tessa Caruso Work Phone: [facility] 02-08-2023 07:30-0400 Heart rate 49 /min MD Tessa Caruso Work Phone: [facility] 02-08-2023 07:30-0400 Respiratory rate 18 /min MD Tessa Caruso Work Phone: [facility] 02-08-2023 07:30-0400 SaO2% (BldA) [Mass fraction] 100 % MD Tessa Caruso Work Phone: [facility] 02-08-2023 07:30-0400 Systolic blood pressure 109 mm[Hg] MD Tessa Caruso Work Phone: [facility] 02-05-2023 14:40-0400 Body height 167 cm MD Tessa Caruso Work Phone: [facility] 10-06-2022 12:30-0400 Body height 166.37 cm Tessa Caruso Other [facility] [employer] Other 10-06-2022 12:30-0400 Body mass index (BMI) [Ratio] 24.09 kg/m2 Tessa Caruso Other [facility] [employer] Other 10-06-2022 12:30-0400 Body weight 66.68 kg Tessa Caruso Other [employer] Other 10-06-2022 12:30-0400 Diastolic blood pressure 60 mm[Hg] Tessa Caruso Other [employer] Other 10-06-2022 12:30-0400 SaO2% (BldA) [Mass fraction] 99 % Tessa Caruso Other [employer] Other 10-06-2022 12:30-0400 Systolic blood pressure 102 mm[Hg] Tessa Caruso Other [employer] Other Encounters Encounter Date Encounter Type Care Provider Facility Start: 11-29-2024 End: 11-29-2024 Office outpatient new 45 minutes Nabeel Quinteros DO [facility] Phone[facility] Comment on above: Acute non-recurrent frontal sinusitis; Pharyngitis, unspecified etiology Start: 11-29-2024 End: 11-29-2024 ambulatory NABEEL QUINTEROS Not Available Start: 04-02-2024 End: 04-02-2024 Emergency department patient visit DO Azam Montanez Work Phone: [facility] Work Phone: Start: 01-05-2024 Non-patient / Non-visit DO Azam Montanez Work Phone: [facility] Work Phone: Start: 10-15-2023 End: 10-15-[address] [facility] Work Phone: Start: 10-15-2023 End: 10-15-2023 Patient encounter procedure [facility] Work Phone: Start: 08-06-2023 End: 08-06-2023 ambulatory Pete Galicia Other [employer] Other Start: 08-06-2023 Office outpatient visit 15 minutes Pete Galicia [facility] Start: 08-06-2023 End: 08-06-2023 Patient encounter procedure [facility]- Start: 06-30-2023 End: 06-30-2023 ambulatory Azam Montanez Facility:[facility] Start: 06-01-2023 End: 06-01-2023 ambulatory Jamie Lazar Other [facility] [employer] Other Start: 06-01-2023 Telephone encounter Jamie DEVLIN G [employer] Start: 02-05-2023 End: 02-08-2023 Evaluation and management of inpatient MD Tessa Caruso Work Phone: [facility] Work Phone: Start: 10-06-2022 End: 10-06-2022 ambulatory Tessa Caruso Other [employer] Other Start: 10-06-2022 Office outpatient visit 15 minutes Tessa Caruso [facility] Start: 09-21-2022 End: 09-22-2022 ambulatory Frederick [place] Facility:[facility] Start: 08-19-2020 End: 08-20-2020 Patient encounter procedure [...] Influenza vaccination Influenz a Vaccine (Season Ended) [facility] Start: 02-08-2023 [facility] Start: 02-05-2023 Referral to Information Clerk Brokerage [facility] Start: 02-05-2023 Hospital admission [facility] Patient Education [facility] Work Phone: Patient referral [facility] Work Phone: Immunizations Immunization Date Immunization Notes Care Provider Fa jamaal 06-04-2023 influenza virus vacc ine, unspecified formulation Nabeel Quinteros DO Work Phone: [facility] Payers Date Payer Category Payer Self-pay 2022 Private Health Insurance [employer] CCN [id number] 2022 Unknown [id number] 2012 Unknown 2012 Unknown [id number] 1998 Unknown [id number] 1998 Unknown [id number] 1998 Unknown [id number] 1974 Unknown [id number] 1959 [employer] ( and others) [id number] Unknown Dana BC/BS [id number] Unknown [id number] Unknown [id number] 531 Social History Date Type Detail Facility Unknown if ever smoked [facility] [employer] Other End: 02-04-2023 Sex Assigned At [facility] [email or web address] Other Start: 02-05-2023 End: 04-02-2024 Tobacco smoking status NHIS Smoker (finding) [facility] Start: 2000 Sex Assigned At Male [facility] Start: 06-30-2023 Tobacco smoking status [facility] Ex-smoker (finding) [facility] Start: 05-22-2023 Tobacco smoking status [facility] Tobacco smoking consumption unknown [facility] Start: 10-12-2023 Alcoholic beverage intake [facility] Start: 2000 Sex assigned at Not on file [facility] Goals Date Patient Goal Desired Activity /State Functional Status Date Assessment Result Facility 02-08-2023 Functional status Patient at Baseline [facility] Work Phone: Mental Status Date Assessment Result Facility 02-08-2023 Cognitive function Cognitive Sta tus Patient at Baseline [facility] Work Phone: Clinical Notes 10-06-2022 to 11-29-2024 Roxie Maciel MA - 11/29/2024 2:45 PM EDT Note Date & Type Note Facility 11-29-2024 History of Presen t illness Narrative Images from the original note were not included. [address] , [address] [facility], [address] P: [phone] F: [phone] HPI Historian of HPI: patient Daryl Nino [...] INFLUENZA DNA PROBE documented in this encounter [facility] 08-06-2023 Evaluation note Encounter Date Diagnosis Assessment [...] every now and then he gets bleeding [employer] Other 08-07-2023 Discharge summary Author Kam Frederick [facility] February 08, 2023 12:52pm Note Date/Time February 08, 2023 12: 53pm [facility] [address] [place] [address] Discharge Summary Signed Patient: Daryl Nino MR#: [id number] : 2000 Acct:[id number] Age/Sex: 22 / M Adm Date: 3 Loc: Room: [address] [place] [address]: Jose Alfredo Celaya MD Copies [...] No Activity Restrictions Instructions: Depression, Adult (DC), [facility] [place] Instructions Stand Alone Forms: [...] Capsule 20 mg PO HS Follow Up: [facility] Hotline [Outside] [facility] [Outside] Tsesa Caruso MD [Primary Care Provider] - (Please contact for any medical needs or concerns) Documented By: Kam Frederick MD 02/08/231249 Signed By: <Electronically signed by Kam Frederick MD> 02/08/[address] [facility] Work Phone: 1(952) 118-959408-06-2023 Progress note Author Kam Frederick [facility] February 07, 2023 10:23am Note Date/Time February 07, 2023 10: 23am [facility] [address] [place] [address] Psychiatry Progress Note Signed Patient: Daryl Nino MR#: [id number] : 2000 Acct:[id number] Age/Sex: 22 / M Adm Date: 3 Loc: Room: [address] [place] [address] Type : ADM IN Attending Dr: Jose [...] <Electronically signed by Kam Frederick MD> 02/07/23 [facility] Work Phone: 1(258) 575-737408-05-2023 Progress note Author Kam Frederick [facility] February 06, 2023 12:59pm Note Date/Time February 06, 2023 11: 16am [facility] [address] [place] [address] Psychiatry Progress Note Signed Patient: Daryl Nino MR#: [id number] : 2000 Acct:[id number] Age/Sex: 22 / M Adm Date: 3 Loc: 1S Room: [address] [place] [address] Type : ADM IN Attending Dr: Jose Alfredo Celaya MD Copies to: ~ Date of Service: 02/06/2023 Subjective Subjective Narrative: Daryl reported that he is doing okay. He reported that he did not have any panic attacks overnight. In the past he has been treated by the [place] and was having some counseling over there. [...] <Electronically signed by Kam Frederick MD> 02/06/23 1252 [facility] Work Phone: [phone]) 615-227508-04-2023 History and physical note Author Bret hyman [facility] February 05, 2023 2:27pm Note Date/Time February 05, 2023 2:2 5pm [facility] [address] [place] [address] Psychiatry H&P Signed Patient: Daryl Nino MR#: [id number] : 2000 Acct:[id number] Age/Sex: 22 / M Adm Date: 3 Loc: 1S Room: 0X0658-3 Type: ADM IN Attending Dr: Jose Alfredo [...] signed by Bret Celaya MD> 02/05/[address] [facility] Work Phone: [phone] 326-717404-04-2023 Evaluation note* Encounter Date Diagnosis Assessment Notes Treatment Notes Treatment Clinical Notes Oct, Right anterior knee pain (ICD-10 - M25.561) Multiple joint issues - will focus on most painful - R knee and proceed with ortho referral. Oct, Primary insomnia (ICD-10 - F51.01) States he will call back with the name of a med he took from his friend in [place] that was effective. [employer] Other Evaluation note* Diagnosis Onset Date Resolution Status Depression acute [facility] Work Phone: Evaluation noteNo [employer] Other Evaluation noteNo assessment information available [facility] Work Phone: Evaluation note* Diagnosis Acute [...] Comment : none, Problem Status : Active, [employer] Other History general Narrative - Reported* Type [...] Surgical History hip surgery Hospitalization History colonoscopy [employer] Other Hospital Discharge instructions Additional Instructions Regular Diet No Activity [facility] Work Phone: Summary Purpose Family History Relationship Condition Age at Onset Recorded Date/T verna Not Specified No pertinent family history Unknown Relationship Condition Age at Onset Recorded Date/T verna Not Specified Unknown family medical history Unknown Advance Directives Advance Directive Response Recorded Date/ Time Advance Directives No February 05 023 12:11am Reason for Referral Reason *Waiting for appt. [facility] Diagnosis 1 Right anterior knee pain (M25.561) Referral Organization [facility] Referring Provider First Name Tessa Referring Provider Last Name Simran Referring Provider Specialty Family Medi cine Referred Organization [facility] Referred Provider Jaime Lopez Referred Address [address] [place],[address] Referred Provider Specialty Orthopedic S urgery Referral [...] DATE CREATED AUTHOR AUTHOR'S ORGANIZ ATION 09/22/2022 [facility] DATE CREATED AUTHOR AUTHOR'S ORGANIZ ATION 06/19/2024 [facility] DATE CREATED AUTHOR AUTHOR'S ORGANIZ ATION 12/02/2024 [facility] EPIC REASON FOR VISIT [...] October 15, 2023 End: October 15, 2023 [employer] Manager Relationship Specialty Start Date End Date Unallocated, [place] Provider, [address] [place], [place] [id number] PCP - General 05/22/23 Goals (unrecognized section [...] BE BASED ON THE PRIMARY CLINICAL RECORDS. [facility] [employer]. provides no warranty or guarantee of the accuracy or completeness of information in this document.
== END 2025-03-29 10:53 | disposition home or self-care (01) ==
LOC: RAD 10:52
PROVIDERS: PCP Family Medicine; Visit Provider Physician Assistant
DX: M25.512 Pain in left shoulder (principal)
CPT/HCPCS: 73030